=== PATIENT | female | born 1960 ===

== ENCOUNTER 2016-12-10 23:55 | Observation (INO) | payer MEDICAID ==
--- NOTE | 2016-12-11 00:22 | ED PDOC ---
Arrival/HPI - General Historian: Patient - History of Present Illness Time/Duration: Prior to Arrival Symptom Onset: Sudden Symptom Course: Intermittent Quality: Pressure, Burning Severity Level: Moderate Activities at Onset: Rest - General Chief Complaint: Chest Pain Time Seen by Provider: 12/11/16 00:03 - History of Present Illness Narrative History of Present Illness (Text): 12/11/16 00:34 56yo F with PMHx of HTN and tobacco abuse here for evaluation of chest pain. Patient states that at 11PM tonight, she felt some chest pain, described as pressure and burning. She was resting upon onset of pain. She states that she felt some palpitations at the time of the event. Chest pain has been continuing off and on since the initial episode. She states that she checked her BP at the time at home and the systolic BP was 176. She took an Aspirin 81mg and her regular BP med when she had the chest pain. Currently denies any pain. She has been compliant with her home regimen of Metoprolol 25mg BID. Denies N/V/D. No Abd pain. No F/C. No SOB. No headaches. No dysuria. No Lower extremity swelling. No other complaints. She reports similar episode in June. She was admitted and ACS was ruled out with serial troponins. She was recommended to obtain an out-patient stress test , however, the patient has not followed up. PMHx: HTN, Prior TIA, glucose intolerance PShx: Cholecystectomy, Hernia repair, Left Eye Cataract repair Family Hx: mother [place] in her 70s Social Hx: 3-5 cig/ day x 25+ yrs; Denies any alcohol, denies any illicit drugs Meds: ASA 81mg, Metoprolol 25mg PO BID Allergy: Morphine (Anali,Francisco) Past Medical History - Provider Review Nursing Documentation Reviewed: Yes - Infectious Disease Hx of Infectious Diseases: None - Tetanus Immunization Tetanus Immunization: Unknown - Cardiac Hx Cardiac Disorders: Yes Hx Hypertension: Yes - Pulmonary Hx Respiratory Disorders: No - Neurological Hx Neurological Disorder: Yes Hx Dizziness: Yes - HEENT Hx HEENT Disorder: Yes Hx Cataracts: Yes - Renal Hx Renal Disorder: No - Endocrine/Metabolic Hx Diabetes Mellitus Type 2: Yes ("Borderline") - Hematological/Oncological Hx Blood Disorders: No - Integumentary Hx Dermatological Disorder: No - Musculoskeletal/Rheumatological Hx Musculoskeletal Disorders: No Hx Falls: No - Gastrointestinal Hx Gastrointestinal Disorders: No - Genitourinary/Gynecological Hx Genitourinary Disorders: No - Psychiatric Hx Psychophysiologic Disorder: Yes Hx Anxiety: Yes Hx Substance Use: No - Surgical History Hx Cholecystectomy: Yes Other/Comment: cataract sx - Anesthesia Hx Anesthesia: Yes Hx Anesthesia Reactions: No Hx Malignant Hyperthermia: No - Suicidal Assessment Feels Threatened In Home Enviroment: No Family/Social History - Physician Review Nursing Documentation Reviewed: Yes Family/Social History: CAD/NC (Mother) Smoking Status: Light Smoker < 10 Cigarettes Daily Hx Alcohol Use: No Hx Substance Use: No Hx Substance Use Treatment: No Allergies/Home Meds Allergies/Adverse Reactions: Allergies morphine Allergy (Verified 05/19/16 10:22) SHORTNESS OF BREATH Home Medications: Home Meds Medication Instructions Recorded Confirmed Calcium Carbonate/Vitamin D 1 tab PO DAILY 02/06/15 06/20/16 [Calcium 900 W/Vitamin D 300 mg-100 Iu] Gabapentin [Neurontin] 100 mg PO TID 02/06/15 06/20/16 Sertraline HCl [Zoloft] 50 mg PO DAILY 02/06/15 06/20/16 Review of Systems - Physician Review All systems were reviewed & negative as marked: Yes - Review of Systems Constitutional: Normal Eyes: Normal ENT: Normal Respiratory: absent: SOB, Cough Cardiovascular: Chest Pain, Palpitations. absent: Edema, Calf Pain, HENSON, Syncope Gastrointestinal: Normal. absent: Abdominal Pain, Constipation, Diarrhea, Vomiting Genitourinary Female: absent: Dysuria, Frequency Musculoskeletal: absent: Arthralgias, Back Pain Skin: absent: Rash, Pruritis Neurological: absent: Headache, Dizziness Endocrine: absent: Diaphoresis Physical Exam Vital Signs Reviewed: Yes Temperature: Afebrile Blood Pressure: Hypertensive Pulse: Regular Respiratory Rate: Normal Appearance: Positive for: Well-Appearing, Non-Toxic, Comfortable Pain Distress: None Mental Status: Positive for: Alert and Oriented X 3 - Systems Exam Head: Present: Atraumatic, Normocephalic Extroacular Muscles: Present: EOMI Neck: Present: Normal Range of Motion. No: JVD Respiratory/Chest: Present: Clear to Auscultation, Good Air Exchange. No: Respiratory Distress, Wheezes, Decreased Breath Sounds, Rales, Rhonchi Cardiovascular: Present: Normal S1, S2. No: Murmurs Abdomen: No: Tenderness, Distention, Peritoneal Signs, Rebound Upper Extremity: Present: Normal Inspection. No: Edema Lower Extremity: Present: Normal Inspection. No: Edema, CALF TENDERNESS Neurological: Present: GCS=15 Skin: Present: Warm, Dry, Normal Color. No: Rashes, Diaphoretic Psychiatric: Present: Alert, Oriented x 3 Medical Decision Making ED Course and Treatment: 12/11/16 00:52 56yo F with PMHx including HTN, Tobacco abuse here for evaluation of chest pain - EKG - NSR @ 90. Left axis. No ST changes. Similar to previous EKG. - CBC - CMP - CPK - Troponin - ASA 243mg PO - CXR - Reassess and dispo 12/11/16 01:15 - HEART score is 4pts = 12-16% risk of major adverse cardiac event within 30 days - JOAN score 2pts = 8% risk of major adverse cardiac event within 14 days Upon reevaluation, patient is c/o a burning type retro sternal chest pain. - Maalox PO 12/11/16 01:25 - Mild leukocytosis noted. - Troponin negative - CXR - no active disease 12/11/16 01:26 - Discussed case with Dr. Lewis. Agrees with current plan. Accepts patient under the hospitalist service. vice president medical affairs aware and will evaluate patient. Admission to Tele Obs. - Discussed all lab findings and imaging with patient and daughter at bedside. All questions and concerns addressed. Patient understands and agrees with plan. (Francisco Briones) 12/11/16 01:36 Patient seen by resident and then evaluated by me. Patient has multiple cardiac risk factors and no cardiac follow-up within 72 hours. Cxray negative. Trop x 1 negative. Patient to be transferred to tele observation for chest pain (Marina Dent) - Lab Interpretations Lab Results: 12/11/16 00:20 12/11/16 00:20 Lab Results 12/11/16 00:20: Sodium 144, Potassium 4.3, Chloride 107, Carbon Dioxide 26, Anion Gap 15, BUN 11, Creatinine 0.7, Est GFR ( Amer) > 60, Est GFR (Non- Af Amer) > 60, Random Glucose 130 H, Calcium 9.4, Total Bilirubin 0.3, AST 31, ALT 41, Alkaline Phosphatase 115, Total Creatine Kinase 97, Troponin I < 0.01, Total Protein 7.3, Albumin 4.3, Globulin 3.1, Albumin/Globulin Ratio 1.4 12/11/16 00:20: WBC 13.8 H D, RBC 4.80, Hgb 14.5, Hct 42.9, MCV 89.4, MCH 30.2, MCHC 33.8, RDW 13.4, Plt Count 281, MPV 10.5, Gran % 46.1 L, Lymph % (Auto) 37.6 H, [place] % (Auto) 8.0 H, Eos % (Auto) 8.0 H, Baso % (Auto) 0.3, Gran # 6.34 , Lymph # 5.2 H, [place] # 1.1 H, Eos # 1.1 H, Baso # 0.04 - RAD Interpretation Radiology Orders: 12/11/16 00:21 CHEST PORTABLE [RAD] Stat - Medication Orders Current Medication Orders: Discontinued Medications Al Hydrox/Mg Hydrox/Simethicone (Maalox Plus 30 Ml) 30 ml PO STAT STA Stop: 12/11/16 01:18 Aspirin (Aspirin Chewable) 243 mg PO STAT STA Stop: 12/11/16 00:37 Last Admin: 12/11/16 00:53 Dose: 243 mg - PA / MEDICAL DIAGNOSTIC RADIOGRAPHER / Resident Statement / has reviewed & agrees with the documentation as recorded. / has examined the patient and agrees with the treatment plan. Disposition/Present on Arrival - Present on Arrival Any Indicators Present on Arrival: No History of DVT/PE: No History of Uncontrolled Diabetes: No Urinary Catheter: No History of Decub. Ulcer: No History Surgical Site Infection Following: None - Disposition Have Diagnosis and Disposition been Completed?: Yes Disposition Time: 01:30 Patient Plan: Admission, Observation, Telemetry - Disposition Diagnosis: Chest pain Disposition: HOSPITALIZED Condition: STABLE Discharge Instructions (ExitCare): Chest Pain (ED) Forms: [employer] ([place])
[2016-12-11 00:55] LABS: BASO # 0.04 K/mm3 (0.0-2.0); BASO % 0.3 % (0.0-3.0); EOS # 1.1 (0.0-0.7); GRAN # 6.34 (1.4-6.5); GRAN % 46.1 % (50.0-68.0); HEMATOCRIT 42.9 % (36.0-48.0); LYMPH # 5.2 (1.2-3.4); LYMPH % 37.6 % (22.0-35.0); MEAN CELL VOLUME 89.4 fl (80.0-105.0); MEAN CORPUSCULAR HEMOGLOBIN 30.2 pg (25.0-35.0); MEAN CORPUSCULAR HGB CONC 33.8 g/dl (31.0-37.0); MEAN PLATELET VOLUME 10.5 fl (7.0-11.0); MONO # 1.1 (0.1-0.6); RED CELL DISTRIBUTION WIDTH 13.4 % (11.5-14.5); WHITE BLOOD COUNT 13.8 10^3/ul (4.5-11.0)
[2016-12-11 00:59] LABS: ALB/GLOB RATIO 1.4 (1.1-1.8); ALKALINE PHOSPHATASE 115 U/L (38-133); ALT/SGPT 41 U/L (7-56); AST/SGOT 31 U/L (15-39); BILIRUBIN,TOTAL 0.3 mg/dL (0.2-1.3); BLOOD UREA NITROGEN 11 mg/dL (7-21); CALCIUM 9.4 mg/dL (8.4-10.5); CARBON DIOXIDE 26 mmol/L (21-33); GFR AFRICAN-AMERICAN > 60; GLUCOSE,RANDOM 130 mg/dL (70-110); TOTAL PROTEIN 7.3 g/dL (5.8-8.3)
[2016-12-11 01:01] LABS: CHLORIDE 107 mmol/L (98-107); POTASSIUM 4.3 mmol/L (3.6-5.0); SODIUM 144 mmol/L (132-148)
[2016-12-11 01:11] LABS: TROPONIN I < 0.01 ng/mL
[2016-12-11] MEDS ORDERED: Alum-Mag Hydrox-Simethicone Susp (30 mL) PO STA (01:17)
[2016-12-11 03:18] VITALS: BMI 25.2
[2016-12-11] MEDS ORDERED: Pneumococcal 23-Valent Vaccine IM ONE (03:18)
--- NOTE | 2016-12-11 04:13 | CP.PCM.HP ---
<Kelby Adan - Last Filed: 12/11/16 04:09> History of Present Illness - History of Present Illness History of Present Illness: CC: Chest pain HPI: Patient is a 56 year old female with PMH significant for osteoporosis, HTN , tobacco abuse, TIA in 2002 and fatty liver who presents complaining of chest pain. Patient reports starting about 12 hours ago she suddenly developed mid- sternal chest discomfort described as pressure while watching television. Patient described discomfort as chest pressure without radiation or pain in her jaw, neck, or left arm. Patient states she took her BP at the time of the event and states it was 176/103. Patient reports compliance with medication prescribed to her. She denies any shortness of breath, nausea, vomiting, sweating associated with episode. Associated symptoms include dyspnea on exertion with walking 1 to 1.5 blocks or going up a flight of stairs. She reports previous episodes similar to her presenting symptoms in the past with the most recent being last year. Patient was seen by administrative clerk with last episode but did not follow up outpatient for scheduled stress test. Patient denies abdominal pain, acid reflux, change in vision or dizziness. PMH: HTN, osteoporosis, hx of TIA in 2002, fatty liver, cataracts PSH: Cholecystectomy, Carpal tunnel surgery on R hand, Hernia repair FMH: - Father: HTN, DM2 - Mother: HTN, DM2, MA @ 74 SocHx: Unemployed - Tobacco: 0.5 PPD for 39 years - Etoh: Denies - ID: Denies Meds: See MAR All: Morphine - causes palps Present on Admission - Present on Admission Any Indicators Present on Admission: No History of DVT/PE: No History of Uncontrolled Diabetes: No Urinary Catheter: No Decubitus Ulcer Present: No Review of Systems - Review of Systems All systems: reviewed and no additional remarkable complaints except (except for what is mentioned in HPI) - Cardiovascular Cardiovascular: Chest Pain. absent: Orthopnea - Respiratory Respiratory: Dyspnea on Exertion. absent: Cough, Dyspnea Past Patient History - Infectious Disease Hx of Infectious Diseases: None - Tetanus Immunizations Tetanus Immunization: Unknown - Past Social History Smoking Status: Light Smoker < 10 Cigarettes Daily Alcohol: None Drugs: Denies - CARDIAC Hx Cardiac Disorders: Yes Hx Hypertension: Yes - PULMONARY Hx Respiratory Disorders: No - NEUROLOGICAL Hx Neurological Disorder: Yes Hx Dizziness: Yes - HEENT Hx HEENT Problems: Yes Hx Cataracts: Yes (with surgery) - RENAL Hx Chronic Kidney Disease: No - ENDOCRINE/METABOLIC Hx Endocrine Disorders: Yes Hx Diabetes Mellitus Type 2: Yes ("Borderline") - HEMATOLOGICAL/ONCOLOGICAL Hx Blood Disorders: No - INTEGUMENTARY Hx Dermatological Problems: No - MUSCULOSKELETAL/RHEUMATOLOGICAL Hx Musculoskeletal Disorders: No Hx Falls: No - GASTROINTESTINAL Hx Gastrointestinal Disorders: No - GENITOURINARY/GYNECOLOGICAL Hx Genitourinary Disorders: No - PSYCHIATRIC Hx Psychophysiologic Disorder: Yes Hx Anxiety: Yes Hx Substance Use: No - SURGICAL HISTORY Hx Surgeries: Yes Other/Comment: Cataracts w/ surgery - ANESTHESIA Hx Anesthesia: Yes Hx Anesthesia Reactions: No Hx Malignant Hyperthermia: No Meds Allergies/Adverse Reactions: Allergies Allergy/AdvReac Type Severity Reaction Status Date / Time morphine Allergy SHORTNESS Verified 05/19/16 10:22 OF BREATH Physical Exam - Constitutional Appears: Well - Head Exam Head Exam: ATRAUMATIC - Eye Exam Eye Exam: EOMI, PERRL - ENT Exam ENT Exam: Mucous Membranes Moist, Normal Exam - Neck Exam Neck exam: Positive for: Normal Inspection - Respiratory Exam Respiratory Exam: Clear to Auscultation Bilateral, NORMAL BREATHING PATTERN - Cardiovascular Exam Cardiovascular Exam: REGULAR RHYTHM, +S1, +S2 - GI/Abdominal Exam GI & Abdominal Exam: Normal Bowel Sounds, Soft - Rectal Exam Rectal Exam: Deferred - Extremities Exam Extremities exam: Positive for: normal inspection, pedal pulses present. Negative for: calf tenderness, pedal edema - Back Exam Back exam: NORMAL INSPECTION. absent: CVA tenderness (L), CVA tenderness (R) - Neurological Exam Neurological exam: Alert, CN II-XII Intact, Normal Gait, Oriented x3, Reflexes Normal - Psychiatric Exam Psychiatric exam: Normal Affect, Normal Mood - Skin Skin Exam: Dry, Intact, Normal Color, Warm Results - Vital Signs Recent Vital Signs: Last Vital Signs Temp 97.5 F L 12/11/16 02:53 Pulse 68 12/11/16 02:53 Resp 20 12/11/16 02:53 BP 128/67 12/11/16 02:53 Pulse Ox 99 12/11/16 02:32 - Labs Result Diagrams: 12/11/16 00:20 12/11/16 00:20 Assessment & Plan (1) Chest pain Status: Acute - Assessment and Plan (Free Text) Assessment: Patient is a 56 year old female with PMH significant for osteoporosis, HTN, tobacco abuse, TIA in 2002 and fatty liver who presents complaining of chest pain. Patient initial troponin was negative. She will be admitted for observation and ACS r/o. Cardiology has been consulted. Plan: 1. Chest Pain r/o ACS - EKG showing no ST segment elevation/depression, nor T wave inversions - CXR showing cephalization of pulmonary vasculature bilateral - Initial troponin negative x1 - Trend troponin x2 - CBC, CMP, Mg, Ph, TSH, HgA1c - O2 prn, ASA 81 mg, - Nitrates SL prn - Cardiology consult, appreciate recs 2. Hx of HTN - Continue home medicatiosn 3. Hx of Osteoporosis - Continue home meds GI/DVT ppx - pepcid - SCDs - Date & Time Date: 12/11/16 Time: 03:20 <Ryan Lewis - Last Filed: 12/11/16 05:16> Results - Vital Signs Recent Vital Signs: Last Vital Signs Temp 97.5 F L 12/11/16 02:53 Pulse 68 12/11/16 02:53 Resp 20 12/11/16 02:53 BP 128/67 12/11/16 02:53 Pulse Ox 99 12/11/16 02:32 - Labs Result Diagrams: 12/11/16 00:20 12/11/16 00:20 Attending/Attestation - Attestation I have personally seen and examined this patient.: Yes I have fully participated in the care of the patient.: Yes I have reviewed all pertinent clinical information: Yes Notes (Text): 12/11/16 05:15 Patient was seen when she was in bed # 3 in the ER. Agree with history, physical examination, assessment and plan. Medical record was reviewed. Following are my impressions. Chest pressure. Palpitation. ACS. Hypertension. H.Pylori. PUD. Glucose Intolerance. Ex smoker. Allergy to morphine. Cholecystectomy. Herniorrhaphy. Cataract surgery Left Eye. Family history CAD. Family hisory MA. TIA's. Osteoporosis. HLD.
[2016-12-11 06:19] LABS: BASO # 0.04 K/mm3 (0.0-2.0); BASO % 0.3 % (0.0-3.0); EOS # 0.8 (0.0-0.7); EOS % 6.7 % (1.5-5.0); GRAN % 52.4 % (50.0-68.0); HEMATOCRIT 40.4 % (36.0-48.0); LYMPH # 3.8 (1.2-3.4); MEAN CELL VOLUME 88.8 fl (80.0-105.0); MEAN CORPUSCULAR HEMOGLOBIN 29.7 pg (25.0-35.0); MEAN CORPUSCULAR HGB CONC 33.4 g/dl (31.0-37.0); MEAN PLATELET VOLUME 10.3 fl (7.0-11.0); MONO # 0.9 (0.1-0.6); MONO % 7.6 % (1.0-6.0); RED CELL DISTRIBUTION WIDTH 13.3 % (11.5-14.5); WHITE BLOOD COUNT 11.5 10^3/ul (4.5-11.0)
[2016-12-11 06:25] VITALS: O2SAT 97
[2016-12-11 06:35] LABS: ALB/GLOB RATIO 1.4 (1.1-1.8); ALKALINE PHOSPHATASE 102 U/L (38-133); ALT/SGPT 39 U/L (7-56); AST/SGOT 27 U/L (15-39); BILIRUBIN,TOTAL 0.3 mg/dL (0.2-1.3); BLOOD UREA NITROGEN 9 mg/dL (7-21); CARBON DIOXIDE 29 mmol/L (21-33); CHLORIDE 107 mmol/L (98-107); CHOLESTEROL 171 mg/dL (130-200); GFR AFRICAN-AMERICAN > 60; GLUCOSE,RANDOM 109 mg/dL (70-110); POTASSIUM 4.3 mmol/L (3.6-5.0); SODIUM 144 mmol/L (132-148); TOTAL PROTEIN 6.7 g/dL (5.8-8.3)
[2016-12-11 06:53] LABS: TROPONIN I < 0.01 ng/mL
[2016-12-11 07:20] LABS: MAGNESIUM 2.3 mg/dL (1.7-2.2); PHOSPHOROUS 3.9 mg/dL (2.5-4.5)
--- NOTE | 2016-12-11 07:57 | RAD ---
HISTORY: chest pain COMPARISON: 06/19/2016 FINDINGS: LUNGS: No active pulmonary disease. PLEURA: No significant pleural effusion identified, no pneumothorax apparent. CARDIOVASCULAR: Normal. OSSEOUS STRUCTURES: No significant abnormalities. VISUALIZED UPPER ABDOMEN: Normal. OTHER FINDINGS: None. IMPRESSION: No active disease.
[2016-12-11 09:26] LABS: URINE BILIRUBIN NEGATIVE (NEGATIVE); URINE BLOOD NEGATIVE (NEGATIVE); URINE GLUCOSE (UA) NEGATIVE (NEGATIVE); URINE KETONE NEGATIVE (NEGATIVE); URINE LEUKOCYTE ESTERASE NEGATIVE Leu/uL (NEGATIVE); URINE PROTEIN TRACE mg/dL (<30 mg/dL)
[2016-12-11 09:27] LABS: URINE APPEARANCE CLEAR (CLEAR); URINE COLOR YELLOW (YELLOW)
[2016-12-11 09:32] LABS: URINE BACTERIA FEW (NEG); URINE RBC NEGATIVE /hpf (0-2); URINE WBC 0 - 2 /hpf (0-6)
[2016-12-11] MEDS ORDERED: CALCIUM CARBONATE PO SCH (10:00)
[2016-12-11] MEDS ORDERED: VITAMIN D PO SCH (10:00)
--- NOTE | 2016-12-11 15:23 | CARD ---
APPROVED REPORT EKG Measurement Heart [id number] ID [id number] <Conclusion> Normal sinus rhythm Left axis deviation Inferior infarct, age undetermined Abnormal ECG
--- NOTE | 2016-12-11 15:27 | CARD ---
APPROVED REPORT EKG Measurement Heart [id number] <Conclusion> Normal sinus rhythm Left axis deviation Abnormal ECG
--- NOTE | 2016-12-11 15:29 | CARD ---
APPROVED REPORT EKG Measurement Heart [id number] <Conclusion> Normal sinus rhythm Left axis deviation Abnormal ECG
--- NOTE | 2016-12-11 15:58 | CP.PCM.DIS ---
<SUKHI SIM - Last Filed: 12/11/16 20:07> Provider - Provider Date of Admission: 12/11/16 01:20 Attending physician: Jackie Sotomayor MD Consults: Cardio: Cristobal Time Spent in preparation of Discharge (in minutes): 45 Hospital Course - Lab Results Lab Results: Most Recent Lab Values WBC 11.5 10^3/ul (4.5-11.0) H 12/11/16 05:30 RBC 4.55 10^6/uL (3.5-6.1) 12/11/16 05:30 Hgb 13.5 g/dL (12.0-16.0) 12/11/16 05:30 Hct 40.4 % (36.0-48.0) 12/11/16 05:30 MCV 88.8 fl (80.0-105.0) 12/11/16 05:30 MCH 29.7 pg (25.0-35.0) 12/11/16 05:30 MCHC 33.4 g/dl (31.0-37.0) 12/11/16 05:30 RDW 13.3 % (11.5-14.5) 12/11/16 05:30 Plt Count 266 10^3/uL (120.0-450.0) 12/11/16 05:30 MPV 10.3 fl (7.0-11.0) 12/11/16 05:30 Gran % 52.4 % (50.0-68.0) 12/11/16 05:30 Lymph % (Auto) 33.0 % (22.0-35.0) 12/11/16 05:30 [place] % (Auto) 7.6 % (1.0-6.0) H 12/11/16 05:30 Eos % (Auto) 6.7 % (1.5-5.0) H 12/11/16 05:30 Baso % (Auto) 0.3 % (0.0-3.0) 12/11/16 05:30 Gran # 6.00 (1.4-6.5) 12/11/16 05:30 Lymph # 3.8 (1.2-3.4) H 12/11/16 05:30 [place] # 0.9 (0.1-0.6) H 12/11/16 05:30 Eos # 0.8 (0.0-0.7) H 12/11/16 05:30 Baso # 0.04 K/mm3 (0.0-2.0) 12/11/16 05:30 Sodium 144 mmol/L (132-148) 12/11/16 05:30 Potassium 4.3 mmol/L (3.6-5.0) 12/11/16 05:30 Chloride 107 mmol/L (98-107) 12/11/16 05:30 Carbon Dioxide 29 mmol/L (21-33) 12/11/16 05:30 Anion Gap 12 (10-20) 12/11/16 05:30 BUN 9 mg/dL (7-21) 12/11/16 05:30 Creatinine 0.6 mg/dL (0.5-1.4) 12/11/16 05:30 Est GFR ( Amer) > 60 12/11/16 05:30 Est GFR (Non-Af Amer) > 60 12/11/16 05:30 Random Glucose 109 mg/dL (70-110) 12/11/16 05:30 Hemoglobin A1c 6.2 % (4.2-6.5) 12/11/16 05:30 Calcium 9.0 mg/dL (8.4-10.5) 12/11/16 05:30 Phosphorus 3.9 mg/dL (2.5-4.5) 12/11/16 05:30 Magnesium 2.3 mg/dL (1.7-2.2) H 12/11/16 05:30 Total Bilirubin 0.3 mg/dL (0.2-1.3) 12/11/16 05:30 AST 27 U/L (15-39) 12/11/16 05:30 ALT 39 U/L (7-56) 12/11/16 05:30 Alkaline Phosphatase 102 U/L (38-133) 12/11/16 05:30 Total Creatine Kinase 97 U/L (35-230) 12/11/16 00:20 Troponin I < 0.01 ng/mL 12/11/16 12:00 Total Protein 6.7 g/dL (5.8-8.3) 12/11/16 05:30 Albumin 3.9 g/dL (3.0-4.8) 12/11/16 05:30 Globulin 2.8 gm/dL 12/11/16 05:30 Albumin/Globulin Ratio 1.4 (1.1-1.8) 12/11/16 05:30 Triglycerides 123 mg/dL (35-160) 12/11/16 05:30 Cholesterol 171 mg/dL (130-200) 12/11/16 05:30 LDL Cholesterol Direct 114 mg/dL (0-129) 12/11/16 05:30 HDL Cholesterol 43 mg/dL (29-60) 12/11/16 05:30 TSH 3rd Generation 1.17 mIU/mL (0.46-4.68) 12/11/16 05:30 Urine Color Yellow (YELLOW) 12/11/16 08:45 Urine Appearance Clear (CLEAR) 12/11/16 08:45 Urine pH 7.0 (4.7-8.0) 12/11/16 08:45 Ur Specific [place] 1.015 (1.005-1.035) 12/11/16 08:45 Urine Protein Trace mg/dL (<30 mg/dL) H 12/11/16 08:45 Urine Glucose (UA) Negative mg/dL (NEGATIVE) 12/11/16 08:45 Urine Ketones Negative mg/dL (NEGATIVE) 12/11/16 08:45 Urine Blood Negative (NEGATIVE) 12/11/16 08:45 Urine Nitrate Negative (NEGATIVE) 12/11/16 08:45 Urine Bilirubin Negative (NEGATIVE) 12/11/16 08:45 Urine Urobilinogen 1.0 E.U./dL (<1 E.U./dL) H 12/11/16 08:45 Ur Leukocyte Esterase Negative Ivette/uL (NEGATIVE) 12/11/16 08:45 Urine RBC Negative /hpf (0-2) 12/11/16 08:45 Urine WBC 0 - 2 /hpf (0-6) 12/11/16 08:45 Ur Epithelial Cells 4 - 5 /hpf (0-5) 12/11/16 08:45 Urine Bacteria Few (NEG) 12/11/16 08:45 - Hospital Course Hospital Course: Patient is a 56 year old female with PMH significant for osteoporosis, HTN, tobacco abuse, TIA in 2002 and fatty liver who presented complaining of chest pain. Patient reported pain started about 12 hours ago she suddenly developed mid-sternal chest discomfort described as pressure while watching television. Patient described discomfort as chest pressure without radiation or pain in her jaw, neck, or left arm. Patient states she took her BP at the time of the event and states it was 176/103. Patient reported compliance with medication prescribed to her. She denies any shortness of breath, nausea, vomiting, sweating associated with episode. Associated symptoms include dyspnea on exertion with walking 1 to 1.5 blocks or going up a flight of stairs. She reports previous episodes similar to her presenting symptoms in the past with the most recent being last year. 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 Patient denied abdominal pain, acid reflux, change in vision or dizziness. In the ED, labs and imaging were obtained. Labs were unremarkable. Troponin x1 was negative. EKG showed no ST segment elevation/depression, nor T wave inversions. CXR showed cephalization of pulmonary vasculature bilateral. Pt was admitted for chest pain r/o acs. Cardio was consulted and recommendations were appreciated. TSH, A1C, and Lipids were WNL. Echo on 07/03 showed EF 60.9%. Troponin was trended and was negative x2. Today, pt was seen and examined at bedside. Pt states that CP and SOB has subsided. Pt denies n/v/d, abdominal pain , fever, chills, HORN, and dizziness. Pt discharged and advised to follow up with PMD and cardiology out-patient. Pt advised to take her medication as prescribed. Discharge Exam - Head Exam Head Exam: ATRAUMATIC - Eye Exam Eye Exam: EOMI, PERRL - ENT Exam ENT Exam: Mucous Membranes Moist - Neck Exam Neck exam: Full Rom - Respiratory Exam Respiratory Exam: Clear to PA & Lateral. absent: Rales, Rhonchi, Wheezes - Cardiovascular Exam Cardiovascular Exam: RRR, +S1, +S2. absent: Diastolic murmur, Gallop, Rubs, Systolic Murmur - GI/Abdominal Exam GI & Abdominal Exam: Soft. absent: Distended, Guarding, Organomegaly, Rebound, Tenderness - Extremities Exam Extremities exam: normal inspection - Back Exam Back exam: NORMAL INSPECTION - Neurological Exam Neurological exam: Alert, CN II-XII Intact, Normal Gait, Oriented x3 - Psychiatric Exam Psychiatric exam: Normal Affect, Normal Mood - Skin Skin Exam: Dry, Intact, Normal Color, Warm Discharge Plan - Follow Up Plan Condition: STABLE Disposition: HOME/ ROUTINE Instructions: Chest Pain (DC), Chest Pain (GEN), How to Stop Smoking (DC), Cigarette Smoking and Your Health (GEN), Low Sodium Diet (DC) Additional Instructions: 1. Follow up with PMD within 1 week 2. Follow up with cardiology within 1 week 3. Take medications as prescribed 4. Return to ED if condition or symptoms worsen Referrals: Shaggy Jain MD [Staff Provider] - <Jackie Sotomayor - Last Filed: 12/12/16 07:17> Provider - Provider Date of Admission: 12/11/16 01:20 Attending physician: Jackie Sotomayor MD Hospital Course - Lab Results Lab Results: Most Recent Lab Values WBC 11.5 10^3/ul (4.5-11.0) H 12/11/16 05:30 RBC 4.55 10^6/uL (3.5-6.1) 12/11/16 05:30 Hgb 13.5 g/dL (12.0-16.0) 12/11/16 05:30 Hct 40.4 % (36.0-48.0) 12/11/16 05:30 MCV 88.8 fl (80.0-105.0) 12/11/16 05:30 MCH 29.7 pg (25.0-35.0) 12/11/16 05:30 MCHC 33.4 g/dl (31.0-37.0) 12/11/16 05:30 RDW 13.3 % (11.5-14.5) 12/11/16 05:30 Plt Count 266 10^3/uL (120.0-450.0) 12/11/16 05:30 MPV 10.3 fl (7.0-11.0) 12/11/16 05:30 Gran % 52.4 % (50.0-68.0) 12/11/16 05:30 Lymph % (Auto) 33.0 % (22.0-35.0) 12/11/16 05:30 [place] % (Auto) 7.6 % (1.0-6.0) H 12/11/16 05:30 Eos % (Auto) 6.7 % (1.5-5.0) H 12/11/16 05:30 Baso % (Auto) 0.3 % (0.0-3.0) 12/11/16 05:30 Gran # 6.00 (1.4-6.5) 12/11/16 05:30 Lymph # 3.8 (1.2-3.4) H 12/11/16 05:30 [place] # 0.9 (0.1-0.6) H 12/11/16 05:30 Eos # 0.8 (0.0-0.7) H 12/11/16 05:30 Baso # 0.04 K/mm3 (0.0-2.0) 12/11/16 05:30 Sodium 144 mmol/L (132-148) 12/11/16 05:30 Potassium 4.3 mmol/L (3.6-5.0) 12/11/16 05:30 Chloride 107 mmol/L (98-107) 12/11/16 05:30 Carbon Dioxide 29 mmol/L (21-33) 12/11/16 05:30 Anion Gap 12 (10-20) 12/11/16 05:30 BUN 9 mg/dL (7-21) 12/11/16 05:30 Creatinine 0.6 mg/dL (0.5-1.4) 12/11/16 05:30 Est GFR ( Amer) > 60 12/11/16 05:30 Est GFR (Non-Af Amer) > 60 12/11/16 05:30 Random Glucose 109 mg/dL (70-110) 12/11/16 05:30 Hemoglobin A1c 6.2 % (4.2-6.5) 12/11/16 05:30 Calcium 9.0 mg/dL (8.4-10.5) 12/11/16 05:30 Phosphorus 3.9 mg/dL (2.5-4.5) 12/11/16 05:30 Magnesium 2.3 mg/dL (1.7-2.2) H 12/11/16 05:30 Total Bilirubin 0.3 mg/dL (0.2-1.3) 12/11/16 05:30 AST 27 U/L (15-39) 12/11/16 05:30 ALT 39 U/L (7-56) 12/11/16 05:30 Alkaline Phosphatase 102 U/L (38-133) 12/11/16 05:30 Total Creatine Kinase 97 U/L (35-230) 12/11/16 00:20 Troponin I < 0.01 ng/mL 12/11/16 12:00 Total Protein 6.7 g/dL (5.8-8.3) 12/11/16 05:30 Albumin 3.9 g/dL (3.0-4.8) 12/11/16 05:30 Globulin 2.8 gm/dL 12/11/16 05:30 Albumin/Globulin Ratio 1.4 (1.1-1.8) 12/11/16 05:30 Triglycerides 123 mg/dL (35-160) 12/11/16 05:30 Cholesterol 171 mg/dL (130-200) 12/11/16 05:30 LDL Cholesterol Direct 114 mg/dL (0-129) 12/11/16 05:30 HDL Cholesterol 43 mg/dL (29-60) 12/11/16 05:30 TSH 3rd Generation 1.17 mIU/mL (0.46-4.68) 12/11/16 05:30 Urine Color Yellow (YELLOW) 12/11/16 08:45 Urine Appearance Clear (CLEAR) 12/11/16 08:45 Urine pH 7.0 (4.7-8.0) 12/11/16 08:45 Ur Specific [place] 1.015 (1.005-1.035) 12/11/16 08:45 Urine Protein Trace mg/dL (<30 mg/dL) H 12/11/16 08:45 Urine Glucose (UA) Negative mg/dL (NEGATIVE) 12/11/16 08:45 Urine Ketones Negative mg/dL (NEGATIVE) 12/11/16 08:45 Urine Blood Negative (NEGATIVE) 12/11/16 08:45 Urine Nitrate Negative (NEGATIVE) 12/11/16 08:45 Urine Bilirubin Negative (NEGATIVE) 12/11/16 08:45 Urine Urobilinogen 1.0 E.U./dL (<1 E.U./dL) H 12/11/16 08:45 Ur Leukocyte Esterase Negative [place]/uL (NEGATIVE) 12/11/16 08:45 Urine RBC Negative /hpf (0-2) 12/11/16 08:45 Urine WBC 0 - 2 /hpf (0-6) 12/11/16 08:45 Ur Epithelial Cells 4 - 5 /hpf (0-5) 12/11/16 08:45 Urine Bacteria Few (NEG) 12/11/16 08:45 Attending/Attestation - Attestation I have personally seen and examined this patient.: Yes I have fully participated in the care of the patient.: Yes I have reviewed all pertinent clinical information, including history, physical exam and plan: Yes Notes (Text): 12/11/16 56 year old female with past medical history of hypertension and smoker who presented with complaint of chest pain. Serial cardiac enzymes were negative and ACS was ruled out. Her chest pain has resolved. She was seen by cardiology who recommended outpatient stress test. This was recommended on her recent last admission as well but she failed to comply. Counselled on smoking abstinence. Patient is discharged home today. Follow up with pmd and cardiology for outpatient stress test. Jackie Sotomayor MD Hospitalist.
[2016-12-11 18:39] VITALS: BP 111/59; PULSE 76; RESP 18; TEMP 98
--- NOTE | 2016-12-11 20:05 | CP.PCM.PN ---
Subjective - Date & Time of Evaluation Date of Evaluation: 12/11/16 Time of Evaluation: 20:04 - Subjective Subjective: Patient has been cleared to be discharge by , as per nurse Michelle. Discussed with . Will enter discharge order and have medical delivery technician see patient. Objective - Vital Signs/Intake and Output Vital Signs (last 24 hours): Temp Pulse Resp BP Pulse Ox 98 F 76 18 111/59 L 97 12/11/16 18:00 12/11/16 18:00 12/11/16 18:00 12/11/16 18:00 12/11/16 06:00 Intake and Output: 12/11/16 12/12/16 18:59 06:59 Intake Total 600 Balance 600 - Medications Medications: Current Medications Aspirin (Aspirin Chewable) 81 mg PO DAILY [facility] Last Admin: 12/11/16 10:15 Dose: 81 mg Famotidine (Pepcid) 20 mg PO BID [facility] Last Admin: 12/11/16 17:54 Dose: 20 mg Metoprolol Tartrate (Lopressor) 25 mg PO BID [facility] Last Admin: 12/11/16 17:56 Dose: 25 mg Calcium Carbonate/Vitamin D [Calcium 900 W/Vitamin D 300 Mg-100 (Home Med) 1 tab PO DAILY [facility] Last Admin: 12/11/16 10:19 Dose: Not Given - Labs Labs: 12/11/16 05:30 12/11/16 05:30
--- NOTE | 2016-12-11 21:10 | PN ---
DATE: SUBJECTIVE: The patient denies any chest pain or palpitation. She is experiencing left hip pain. PHYSICAL EXAMINATION: VITAL SIGNS: Blood pressure 111/76, heart rate 76, temperature 98.3, respiration 20. HEENT: Normocephalic. CHEST: Clear. HEART: S1 and S2, regular. EXTREMITIES: No edema. LABORATORY DATA: Today's SMA-7 is entirely within normal limit. Three sets of troponins are negative. Magnesium is 2.3. Hemoglobin and hematocrit 13.5 and 40.4, white count 11.5, platelet count 266,000. TSH level was within normal limit. Lipid profile is within normal limit. ASSESSMENT: 1. History of palpitation on presentation. 2. Hypertension. RECOMMENDATIONS: Continue current aspirin, Lopressor, and oral Pepcid. Consider outpatient stress test. Shaggy Jain MD
--- NOTE | 2016-12-14 09:17 | CON ---
DATE: 12/11/2016 REASON FOR CONSULTATION: Chest pain. HISTORY OF PRESENT ILLNESS: The patient is a 56-year-old female, former smoker, who presented because of chest pain and the patient was recently evaluated at [facility]. Recent venous Doppler of lower extremity was negative for DVT and echocardiograph study in June 2016 was unremarkable study. Patient is unaware of any history of heart attack in the past. SOCIAL HISTORY: Patient is a former smoker. MEDICATIONS: Aspirin 81 mg once daily, Lopressor 25 mg twice a day, Pepcid 20 mg p.o. twice a day. PHYSICAL EXAMINATION GENERAL: Patient is a middle-aged female who does not appear to be in any distress. VITAL SIGNS: Blood pressure 111/76, heart rate 98, temperature 98.3, respirations 20. HEENT: Normocephalic. NECK: No JVD. CHEST: Clear. HEART: S1 and S2 regular. EXTREMITIES: No edema. No calf tenderness. LABORATORY DATA: SMA-7 is entirely within normal limits. Three sets of troponin are negative. Hemoglobin and hematocrit of 13.5 and 40.4, white count is 11.5, platelet count 166,000. EKG revealed normal sinus rhythm. Left axis deviation, inferior infarct of undetermined age. ASSESSMENT: 1. Chest pain, myocardial infarction ruled out. 2. Hypertension. RECOMMENDATIONS: Continue aspirin 81 mg once a day, Lopressor 25 mg twice a day. Consider Myoview stress test as an outpatient. Shaggy Jain MD
== END 2016-12-11 21:18 | disposition home or self-care (01) ==
LOC: ED 23:55 → ERH 12-11 01:20 → 2RSO 12-11 02:52
PROVIDERS: ADMIT Internal Medicine; ATTEND Internal Medicine
DX: R07.89 Other chest pain (principal); I10 Essential (primary) hypertension; M81.0 Age-related osteoporosis without current pathological fracture; M25.552 Pain in left hip; R00.2 Palpitations; R73.03 Prediabetes; K76.0 Fatty (change of) liver, not elsewhere classified; Z86.73 Personal history of transient ischemic attack (TIA), and cerebral infarction without residual deficits; Z79.82 Long term (current) use of aspirin; Z90.49 Acquired absence of other specified parts of digestive tract; Z87.891 Personal history of nicotine dependence; Z83.3 Family history of diabetes mellitus; Z82.49 Family history of ischemic heart disease and other diseases of the circulatory system
CPT/HCPCS: 71010; 80053; 80061; 81001; 82550; 83036; 83735; 84100; 84443; 84484; 85025; 93005; 99285; G0378

== ENCOUNTER 2017-05-13 14:19 | Emergency (ER) | payer MEDICAID ==
[2017-05-13 14:19] VITALS: BMI 25.2
[2017-05-13 14:55] VITALS: RESP 18
--- NOTE | 2017-05-13 15:00 | ED PDOC ---
Arrival/HPI - General Chief Complaint: High Blood Pressure Time Seen by Provider: 05/13/17 14:54 Historian: Patient - History of Present Illness Narrative History of Present Illness (Text): 05/13/17 14:55 57 y/o female, pmh including htn, allergic to morphine, post menopausal, c/o headache x 2 days with elevated blood pressure yesterday. Pt. stated that she has been having for the past 2 days, rt. sided unilateral, throbbing and bother by bright light, had history of migraine, check her BP yesterday while having headache with systolic BP 160-170, non-radiating, no change in vision, no palpitation, no rash, no tearing sensation, no rash, no cloudy urine, no other medical or psychological complaints. Past Medical History - Provider Review Nursing Documentation Reviewed: Yes - Infectious Disease Hx of Infectious Diseases: None - Tetanus Immunization Tetanus Immunization: Unknown - Cardiac Hx Cardiac Disorders: Yes Hx Hypertension: Yes - Pulmonary Hx Respiratory Disorders: No - Neurological Hx Neurological Disorder: Yes Hx Dizziness: Yes - HEENT Hx HEENT Disorder: Yes Hx Cataracts: Yes (with surgery) - Renal Hx Renal Disorder: No - Endocrine/Metabolic Hx Endocrine Disorders: Yes Hx Diabetes Mellitus Type 2: Yes ("Borderline") - Hematological/Oncological Hx Blood Disorders: No - Integumentary Hx Dermatological Disorder: No - Musculoskeletal/Rheumatological Hx Musculoskeletal Disorders: No Hx Falls: No - Gastrointestinal Hx Gastrointestinal Disorders: No - Genitourinary/Gynecological Hx Genitourinary Disorders: No - Psychiatric Hx Psychophysiologic Disorder: Yes Hx Anxiety: Yes Hx Substance Use: No - Surgical History Other/Comment: Cataracts w/ surgery - Anesthesia Hx Anesthesia: Yes Hx Anesthesia Reactions: No Hx Malignant Hyperthermia: No - Suicidal Assessment Feels Threatened In Home Enviroment: No Family/Social History - Physician Review Nursing Documentation Reviewed: Yes Family/Social History: Unknown Family HX Smoking Status: Light Smoker < 10 Cigarettes Daily Hx Alcohol Use: No Hx Substance Use: No Hx Substance Use Treatment: No Allergies/Home Meds Allergies/Adverse Reactions: Allergies morphine Allergy (Verified 05/13/17 14:21) SHORTNESS OF BREATH Home Medications: Home Meds Medication Instructions Recorded Confirmed Calcium Carbonate/Vitamin D 1 tab PO DAILY 02/06/15 05/13/17 [Calcium 900 W/Vitamin D 300 mg-100 Iu] Gabapentin [Neurontin] 100 mg PO TID 02/06/15 05/13/17 Review of Systems - Review of Systems Constitutional: absent: Fatigue, Fevers Eyes: absent: Vision Changes ENT: absent: Hearing Changes Respiratory: absent: SOB, Cough Cardiovascular: absent: Chest Pain Gastrointestinal: absent: Abdominal Pain, Diarrhea, Nausea, Vomiting Musculoskeletal: absent: Arthralgias, Back Pain Skin: absent: Rash, Pruritis Neurological: Headache Psychiatric: absent: Anxiety, Depression Physical Exam Vital Signs Reviewed: Yes Vital Signs Temp Pulse Resp BP Pulse Ox 05/13/17 14:55 73 18 141/86 96 05/13/17 14:25 98.7 F 76 16 151/82 H 97 Temperature: Afebrile Blood Pressure: Hypertensive Pulse: Regular Respiratory Rate: Normal Appearance: Positive for: Well-Appearing, Non-Toxic Pain Distress: Moderate Mental Status: Positive for: Alert and Oriented X 3 - Systems Exam Head: Present: Atraumatic, Normocephalic, Other (no temporal artery tenderness, no jaw claudication. ) Pupils: Present: PERRL Extroacular Muscles: Present: EOMI Conjunctiva: Present: Normal Ears: Present: NORMAL TM, Normal Canal. No: Erythema Mouth: Present: Moist Mucous Membranes Neck: Present: Normal Range of Motion. No: Meningeal Signs, MIDLINE TENDERNESS , Lymphadenopathy Respiratory/Chest: Present: Clear to Auscultation, Good Air Exchange. No: Respiratory Distress, Accessory Muscle Use Cardiovascular: Present: Regular Rate and Rhythm, Normal S1, S2, Other (no pedal edema). No: Murmurs Abdomen: Present: Normal Bowel Sounds. No: Tenderness, Distention, Peritoneal Signs, Rebound, Guarding Back: Present: Normal Inspection Upper Extremity: Present: Normal Inspection. No: Cyanosis, Edema Lower Extremity: Present: Normal Inspection. No: Edema Neurological: Present: GCS=15, CN II-XII Intact, Speech Normal, Motor Func Grossly Intact, Gait Normal, Memory Normal, Other (no drift, walking with normal gait and posture, normal finger to nose and normal heel to chaney test. ) Skin: Present: Warm, Dry, Normal Color. No: Rashes Psychiatric: Present: Alert, Oriented x 3, Normal Insight, Normal Concentration Medical Decision Making ED Course and Treatment: 05/13/17 15:04 -labs/ua -CT head -IVF/reglan/benadryl -Observe and reassess 05/13/17 18:15 -Labs are non-significant with no elevation of creatine and no elevation of wbc , no signs of end organ damage, no signs of infection. -UA show no UTI -Vital signs improved. -CT head show No acute intracranial hemorrhage. Suspect minimal chronic periventricular white matter ischemic changes. -Pt feels relief, no focal neurological deficits, will discharge home. -Discharge home with tylenol, bed rest, follow up with your own pmd and neurologist within 2 days, return to the ER for any new or worsening signs or symptoms. - Lab Interpretations Lab Results: 05/13/17 15:30 05/13/17 15:30 Lab Results 05/13/17 16:00: Urine Color Yellow, Urine Appearance Clear, Urine pH 6.0, Ur Specific [place] 1.020, Urine Protein Negative, Urine Glucose (UA) Negative, Urine Ketones Negative, Urine Blood Negative, Urine Nitrate Negative, Urine Bilirubin Negative, Urine Urobilinogen 0.2, Ur Leukocyte Esterase Negative 05/13/17 15:30: WBC 9.6, RBC 4.80, Hgb 14.2, Hct 43.5, MCV 90.6, MCH 29.6, MCHC 32.6, RDW 13.3, Plt Count 262, MPV 10.8, Gran % 48.6 L, Lymph % (Auto) 34.9, [place] % (Auto) 9.7 H, Eos % (Auto) 6.4 H, Baso % (Auto) 0.4, Gran # 4.67, Lymph # 3.4, [place] # 0.9 H, Eos # 0.6, Baso # 0.04 05/13/17 15:30: Sodium 142, Potassium 3.9, Chloride 106, Carbon Dioxide 28, Anion Gap 12, BUN 9, Creatinine 0.6 L, Est GFR ( Amer) > 60, Est GFR (Non -Af Amer) > 60, Random Glucose 86, Calcium 9.7, Magnesium 2.0, Total Bilirubin 0.4, AST 30, ALT 32, Alkaline Phosphatase 97, Total Protein 7.5, Albumin 4.1, Globulin 3.4, Albumin/Globulin Ratio 1.2 - RAD Interpretation Radiology Orders: 05/13/17 15:01 HEAD W/O CONTRAST [CT] Stat PROCEDURE: CT HEAD WITHOUT CONTRAST. HISTORY: Headache. Elevated BP, r/o bleed COMPARISON: Comparison made with CT scan brain 06/12/2016 TECHNIQUE: Axial computed tomography images were obtained through the head/brain without intravenous contrast. Radiation dose: Total exam DLP = 891.45 mGy-cm. This CT exam was performed using one or more of the following dose reduction techniques: Automated exposure control, adjustment of the mA and/or kV according to patient size, and/or use of iterative reconstruction technique. FINDINGS: HEMORRHAGE: No intracranial hemorrhage. BRAIN: Suspect minimal chronic periventricular white matter ischemic changes. No evidence of large acute infarct. No obvious parenchymal nor extra-axial masses or collections seen on this noncontrast study. Re- demonstrated are tiny radiopaque densities in the dentate nuclei possibly representing early dentate nuclei calcifications. VENTRICLES: Ventricular and sulcal size within range of normal for this patient's stated age. No obstructive hydrocephalus. . CALVARIUM: Calvarium appears intact. PARANASAL SINUSES: Frontal sinuses remain hypoplastic unchanged from prior exam. Minor polypoid like mucosal thickening seen in the right chamber sphenoid sinus. MASTOID AIR CELLS: Unremarkable as visualized. No inflammatory changes. OTHER FINDINGS: Re- demonstrated are changes of bilateral cataract surgery. IMPRESSION: No acute intracranial hemorrhage. Suspect minimal chronic periventricular white matter ischemic changes. Red Lead Burner: Radiologist - Medication Orders Current Medication Orders: Discontinued Medications Diphenhydramine HCl (Benadryl) 50 mg IVP STAT STA Stop: 05/13/17 15:02 Last Admin: 05/13/17 15:35 Dose: 50 mg IVP Administration Document 05/13/17 15:35 [email or web address] (Rec: 05/13/17 15:35 [facility]- [id number]) Charges for Administration # of IVP Administrations 1 Sodium Chloride (Sodium Chloride 0.9%) 500 mls @ 999 mls/hr IV .Q31M STA Stop: 05/13/17 15:31 Last Admin: 05/13/17 15:35 Dose: 999 mls/hr eMAR Start Stop Document 05/13/17 15:35 [email or web address] (Rec: 05/13/17 15:35 [facility]- [id number]) Intravenous Solution Start Date 05/13/17 Start Time 15:35 End Date 05/13/17 Metoclopramide HCl (Reglan) 10 mg IVP STAT STA Stop: 05/13/17 15:02 Last Admin: 05/13/17 15:34 Dose: 10 mg IVP Administration Document 05/13/17 15:34 [email or web address] (Rec: 05/13/17 15:35 [email or web address] [facility]- [id number]) Charges for Administration # of IVP Administrations 1 - PA / STORAGE ENGINEER / Resident Statement MD/DO has reviewed & agrees with the documentation as recorded. Disposition/Present on Arrival - Present on Arrival Any Indicators Present on Arrival: No History of DVT/PE: No History of Uncontrolled Diabetes: No Urinary Catheter: No History of Decub. Ulcer: No History Surgical Site Infection Following: None - Disposition Have Diagnosis and Disposition been Completed?: Yes Diagnosis: Headache Disposition: HOME/ ROUTINE Disposition Time: 15:05 Patient Plan: Discharge Patient Problems: Current Active Problems Problem Status Onset Headache Acute Condition: IMPROVED Additional Instructions: Discharge home with tylenol, bed rest, follow up with your own pmd and neurologist within 2 days, return to the ER for any new or worsening signs or symptoms. Prescriptions: Acetaminophen 2 tab PO QID PRN #30 tab PRN Reason: Other Referrals: Vaishnavi Schultz MD [Primary Care Provider] - Follow up with primary Getachew Nathan MD [Staff Provider] - Follow up with primary Forms: [employer] ([place]ajik), WORK NOTE
[2017-05-13] MEDS ORDERED: DiphenhydrAMINE 50 mg/ml Inj IVP STA (15:01)
[2017-05-13] MEDS ORDERED: Sodium Chloride 0.9% 500 ML IV STA (15:01)
[2017-05-13 15:57] LABS: ALB/GLOB RATIO 1.2 (1.1-1.8); ALBUMIN 4.1 g/dL (3.0-4.8); ALT/SGPT 32 U/L (7-56); AST/SGOT 30 U/L (14-36); BLOOD UREA NITROGEN 9 mg/dL (7-21); CALCIUM 9.7 mg/dL (8.4-10.5); GFR AFRICAN-AMERICAN > 60; GFR NON-AFRICAN AMERICAN > 60
[2017-05-13 16:04] LABS: BASO # 0.04 K/mm3 (0.0-2.0); BASO % 0.4 % (0.0-3.0); EOS # 0.6 (0.0-0.7); EOS % 6.4 % (1.5-5.0); GRAN # 4.67 (1.4-6.5); GRAN % 48.6 % (50.0-68.0); HEMOGLOBIN 14.2 g/dL (12.0-16.0); LYMPH # 3.4 (1.2-3.4); LYMPH % 34.9 % (22.0-35.0); MEAN CELL VOLUME 90.6 fl (80.0-105.0); MEAN CORPUSCULAR HEMOGLOBIN 29.6 pg (25.0-35.0); MEAN CORPUSCULAR HGB CONC 32.6 g/dl (31.0-37.0); MEAN PLATELET VOLUME 10.8 fl (7.0-11.0); MONO # 0.9 (0.1-0.6); MONO % 9.7 % (1.0-6.0); RBC 4.8 10^6/uL (3.5-6.1); RED CELL DISTRIBUTION WIDTH 13.3 % (11.5-14.5); WHITE BLOOD COUNT 9.6 10^3/ul (4.5-11.0)
[2017-05-13 16:27] LABS: URINE BILIRUBIN NEGATIVE (NEGATIVE); URINE BLOOD NEGATIVE (NEGATIVE); URINE GLUCOSE (UA) NEGATIVE (NEGATIVE); URINE LEUKOCYTE ESTERASE NEGATIVE Leu/uL (NEGATIVE); URINE NITRATE NEGATIVE (NEGATIVE); URINE PROTEIN NEGATIVE mg/dL (<30 mg/dL); URINE UROBILINOGEN 0.2 E.U./dL (<1 E.U./dL)
[2017-05-13 16:31] LABS: URINE APPEARANCE CLEAR (CLEAR); URINE COLOR YELLOW (YELLOW)
--- NOTE | 2017-05-13 18:04 | CT ---
PROCEDURE: CT HEAD WITHOUT CONTRAST. HISTORY: Headache. Elevated BP, r/o bleed COMPARISON: Comparison made with CT scan brain 06/12/2016 TECHNIQUE: Axial computed tomography images were obtained through the head/brain without intravenous contrast. Radiation dose: Total exam DLP = 891.45 mGy-cm. This CT exam was performed using one or more of the following dose reduction techniques: Automated exposure control, adjustment of the mA and/or kV according to patient size, and/or use of iterative reconstruction technique. FINDINGS: HEMORRHAGE: No intracranial hemorrhage. BRAIN: Suspect minimal chronic periventricular white matter ischemic changes. No evidence of large acute infarct. No obvious parenchymal nor extra-axial masses or collections seen on this noncontrast study. Re- demonstrated are tiny radiopaque densities in the dentate nuclei possibly representing early dentate nuclei calcifications. VENTRICLES: Ventricular and sulcal size within range of normal for this patient's stated age. No obstructive hydrocephalus. . CALVARIUM: Calvarium appears intact. PARANASAL SINUSES: Frontal sinuses remain hypoplastic unchanged from prior exam. Minor polypoid like mucosal thickening seen in the right chamber sphenoid sinus. MASTOID AIR CELLS: Unremarkable as visualized. No inflammatory changes. OTHER FINDINGS: Re- demonstrated are changes of bilateral cataract surgery. IMPRESSION: No acute intracranial hemorrhage. Suspect minimal chronic periventricular white matter ischemic changes.
[2017-05-13 18:29] VITALS: BP 139/80; PULSE 79; TEMP 98
[2017-05-13 18:31] VITALS: O2SAT 99
== END 2017-05-13 18:31 | disposition home or self-care (01) ==
LOC: ED 14:19
DX: R51 Headache (principal); I10 Essential (primary) hypertension; F17.210 Nicotine dependence, cigarettes, uncomplicated
CPT/HCPCS: 70450; 80053; 81003; 83735; 85025; 96374; 96375; 99283; J1200; J2765; J7040

== ENCOUNTER 2018-02-03 19:31 | Observation (INO) | payer MEDICAID ==
[2018-02-03 19:36] VITALS: BMI 24.7
[2018-02-03 20:50] LABS: ALB/GLOB RATIO 1.2 (1.1-1.8); ALBUMIN 4.1 g/dL (3.0-4.8); ALT/SGPT 25 U/L (7-56); AST/SGOT 28 U/L (14-36); BLOOD UREA NITROGEN 12 mg/dL (7-21); CALCIUM 9.5 mg/dL (8.4-10.5); GFR NON-AFRICAN AMERICAN > 60
[2018-02-03 20:51] LABS: BASO # 0.04 K/mm3 (0.0-2.0); BASO % 0.3 % (0.0-3.0); EOS # 0.8 (0.0-0.7); EOS % 6.1 % (1.5-5.0); GRAN # 5.7 (1.4-6.5); GRAN % 46.6 % (50.0-68.0); HEMOGLOBIN 14.1 g/dL (12.0-16.0); LYMPH # 4.7 (1.2-3.4); LYMPH % 38.4 % (22.0-35.0); MEAN CELL VOLUME 88.7 fl (80.0-105.0); MEAN CORPUSCULAR HEMOGLOBIN 29.6 pg (25.0-35.0); MEAN CORPUSCULAR HGB CONC 33.4 g/dl (31.0-37.0); MEAN PLATELET VOLUME 10.9 fl (7.0-11.0); MONO # 1.1 (0.1-0.6); MONO % 8.6 % (1.0-6.0); RBC 4.76 10^6/uL (3.5-6.1); RED CELL DISTRIBUTION WIDTH 13.3 % (11.5-14.5); WHITE BLOOD COUNT 12.2 10^3/ul (4.5-11.0)
[2018-02-03 21:00] LABS: TROPONIN I < 0.01 ng/mL
[2018-02-03 22:24] LABS: URINE BILIRUBIN NEGATIVE (NEGATIVE); URINE BLOOD NEGATIVE (NEGATIVE); URINE GLUCOSE (UA) NEGATIVE (NEGATIVE); URINE LEUKOCYTE ESTERASE NEGATIVE Leu/uL (NEGATIVE); URINE PROTEIN NEGATIVE mg/dL (<30 mg/dL)
[2018-02-03 22:25] LABS: URINE APPEARANCE CLEAR (CLEAR); URINE COLOR YELLOW (YELLOW)
--- NOTE | 2018-02-03 23:35 | ED PDOC ---
Arrival/HPI - General Historian: Patient - History of Present Illness Narrative History of Present Illness (Text): 02/04/18 01:37 57yr old female with left sided chest pain that started at 6pm. pt states pain is located to the left side of the chest, non radiating. pt denies abdominal pain. no n/v/d/c. no fever/chill. no cough. no dizziness or weakness. pt denies SOB. pt is + smoker. no other complaints. <Uma Guo - Last Filed: 02/04/18 01:37> <Ellie Summers - Last Filed: 02/06/18 13:35> - General Chief Complaint: Chest Pain Time Seen by Provider: 02/03/18 20:02 Past Medical History - Provider Review Nursing Documentation Reviewed: Yes - Travel History Have you recently traveled outside [place] w/in the past 3 mons?: No - Infectious Disease Hx of Infectious Diseases: None - Tetanus Immunization Tetanus Immunization: Unknown - Cardiac Hx Cardiac Disorders: Yes Hx Hypertension: Yes - Pulmonary Hx Respiratory Disorders: No - Neurological Hx Neurological Disorder: Yes Hx Dizziness: Yes - HEENT Hx HEENT Disorder: Yes Hx Cataracts: Yes (with surgery) - Renal Hx Renal Disorder: No - Endocrine/Metabolic Hx Endocrine Disorders: Yes Hx Diabetes Mellitus Type 2: Yes ("Borderline") - Hematological/Oncological Hx Blood Disorders: No - Integumentary Hx Dermatological Disorder: No - Musculoskeletal/Rheumatological Hx Musculoskeletal Disorders: No Hx Falls: No - Gastrointestinal Hx Gastrointestinal Disorders: No - Genitourinary/Gynecological Hx Genitourinary Disorders: No - Psychiatric Hx Psychophysiologic Disorder: Yes Hx Anxiety: Yes Hx Substance Use: No - Surgical History Other/Comment: Cataracts w/ surgery - Anesthesia Hx Anesthesia: Yes Hx Anesthesia Reactions: No Hx Malignant Hyperthermia: No - Suicidal Assessment Feels Threatened In Home Enviroment: No <Uma Guo - Last Filed: 02/04/18 01:37> Family/Social History - Physician Review Nursing Documentation Reviewed: Yes Family/Social History: Unknown Family HX Smoking Status: Light Smoker < 10 Cigarettes Daily Hx Alcohol Use: No Hx Substance Use: No Hx Substance Use Treatment: No <Uma Guo - Last Filed: 02/04/18 01:37> Allergies/Home Meds <Uma Guo - Last Filed: 02/04/18 01:37> <Ellie Summers - Last Filed: 02/06/18 13:35> Allergies/Adverse Reactions: Allergies morphine Allergy (Verified 05/13/17 14:21) SHORTNESS OF BREATH Home Medications: Home Meds Medication Instructions Recorded Confirmed RX: Calcium Carbonate/Vitamin D 1 tab PO DAILY 02/06/15 05/13/17 [Calcium 900 W/Vitamin D 300 mg-100 Iu] RX: Gabapentin [Neurontin] 100 mg PO TID 02/06/15 05/13/17 Review of Systems - Review of Systems Constitutional: absent: Fatigue, Fevers Respiratory: absent: SOB, Cough Cardiovascular: Chest Pain. absent: Palpitations Gastrointestinal: absent: Abdominal Pain, Nausea, Vomiting Genitourinary Female: absent: Dysuria Musculoskeletal: absent: Arthralgias, Neck Pain Skin: absent: Rash, Pruritis Neurological: absent: Headache, Dizziness Endocrine: absent: Diaphoresis Psychiatric: absent: Anxiety, Depression <Uma Guo - Last Filed: 02/04/18 01:37> Physical Exam Vital Signs Reviewed: Yes Vital Signs Temp Pulse Resp BP Pulse Ox 02/03/18 22:48 97.9 F 67 18 131/64 95 02/03/18 19:40 97.7 F 88 20 169/79 H 97 Temperature: Afebrile Blood Pressure: Hypertensive Pulse: Regular Respiratory Rate: Normal Appearance: Positive for: Well-Appearing, Non-Toxic, Comfortable Pain Distress: None Mental Status: Positive for: Alert and Oriented X 3 - Systems Exam Head: Present: Atraumatic Mouth: Present: Moist Mucous Membranes Neck: Present: Normal Range of Motion Respiratory/Chest: Present: Clear to Auscultation, Good Air Exchange. No: Respiratory Distress, Accessory Muscle Use, Tender to Palpation Cardiovascular: Present: Regular Rate and Rhythm, Normal S1, S2. No: Murmurs Abdomen: No: Tenderness, Distention, Peritoneal Signs, Rebound, Guarding Back: Present: Normal Inspection. No: CVA Tenderness, Midline Tenderness, Paraspinal Tenderness Upper Extremity: Present: Normal ROM Lower Extremity: Present: Normal ROM. No: Edema Neurological: Present: GCS=15, Speech Normal Skin: Present: Warm, Dry, Normal Color. No: Rashes Psychiatric: Present: Alert, Oriented x 3 <Uma Guo - Last Filed: 02/04/18 01:37> Vital Signs Temp Pulse Resp BP Pulse Ox 02/04/18 00:34 65 18 128/60 97 02/03/18 22:48 97.9 F 67 18 131/64 95 02/03/18 19:40 97.7 F 88 20 169/79 H 97 <Ellie Summers - Last Filed: 02/06/18 13:35> Medical Decision Making ED Course and Treatment: 02/03/18 23:33 pt with chest pain, left sided, at 6pm. pt was given ASA in the ambulance. vitals stable. pt in no distress. cbc; cmp; wnl trop: wnl ekg; NSR at 88b/m no st elvations, qtc 433 cxr: wnl ua; wnl pt reassessment; pt resting comfortably in er. pt with smoking hx, htn, high cholesterol. case discussed with Dr. Stiven ochoa. will Admit observational status to Tele for chest pain r/o acs. impression; chest pain Admit observational status to tele; - Lab Interpretations Lab Results: 02/03/18 20:25 02/03/18 20:25 Lab Results 02/03/18 22:15: Urine Color Yellow, Urine Appearance Clear, Urine pH 6.0, Ur Specific [place] >= 1.030, Urine Protein Negative, Urine Glucose (UA) Negative, Urine Ketones Negative, Urine Blood Negative, Urine Nitrate Negative, Urine Bilirubin Negative, Urine Urobilinogen 1.0 H, Ur Leukocyte Esterase Negative 02/03/18 20:25: Sodium 142, Potassium 4.1, Chloride 105, Carbon Dioxide 30, Anion Gap 12, BUN 12, Creatinine 0.6 L, Est GFR ( Amer) > 60, Est GFR (Non-Af Amer) > 60, Random Glucose 105, Calcium 9.5, Magnesium 2.0, Total Bilirubin 0.2, AST 28, ALT 25, Alkaline Phosphatase 110, Lactate Dehydrogenase 502, Total Creatine Kinase 166, Troponin I < 0.01, Total Protein 7.4, Albumin 4.1, Globulin 3.3, Albumin/Globulin Ratio 1.2 02/03/18 20:25: WBC 12.2 H D, RBC 4.76, Hgb 14.1, Hct 42.2, MCV 88.7, MCH 29.6, MCHC 33.4, RDW 13.3, Plt Count 265, MPV 10.9, Gran % 46.6 L, Lymph % (Auto) 38.4 H, [place] % (Auto) 8.6 H, Eos % (Auto) 6.1 H, Baso % (Auto) 0.3, Gran # 5.70, Lymph # (Auto) 4.7 H, [place] # (Auto) 1.1 H, Eos # (Auto) 0.8 H, Baso # (Auto) 0.04 - RAD Interpretation Radiology Orders: 02/03/18 20:28 CHEST PORTABLE [RAD] Stat <Uma Guo - Last Filed: 02/04/18 01:37> - Lab Interpretations Lab Results: 02/03/18 20:25 02/03/18 20:25 Lab Results 02/03/18 22:15: Urine Color Yellow, Urine Appearance Clear, Urine pH 6.0, Ur Specific [place] >= 1.030, Urine Protein Negative, Urine Glucose (UA) Negative, Urine Ketones Negative, Urine Blood Negative, Urine Nitrate Negative, Urine Bilirubin Negative, Urine Urobilinogen 1.0 H, Ur Leukocyte Esterase Negative 02/03/18 20:25: Free T4 1.15, TSH 3rd Generation 1.21 02/03/18 20:25: Hemoglobin A1c 6.0 02/03/18 20:25: NT-Pro-B Natriuret Pep 28.2 02/03/18 20:25: Triglycerides 136, Cholesterol 163, LDL Cholesterol Direct 106, HDL Cholesterol 41 02/03/18 20:25: Sodium 142, Potassium 4.1, Chloride 105, Carbon Dioxide 30, Anion Gap 12, BUN 12, Creatinine 0.6 L, Est GFR ( Amer) > 60, Est GFR (Non-Af Amer) > 60, Random Glucose 105, Calcium 9.5, Magnesium 2.0, Total Bilirubin 0.2, AST 28, ALT 25, Alkaline Phosphatase 110, Lactate Dehydrogenase 502, Total Creatine Kinase 166, Troponin I < 0.01, Total Protein 7.4, Albumin 4.1, Globulin 3.3, Albumin/Globulin Ratio 1.2 02/03/18 20:25: WBC 12.2 H D, RBC 4.76, Hgb 14.1, Hct 42.2, MCV 88.7, MCH 29.6, MCHC 33.4, RDW 13.3, Plt Count 265, MPV 10.9, Gran % 46.6 L, Lymph % (Auto) 38.4 H, [place] % (Auto) 8.6 H, Eos % (Auto) 6.1 H, Baso % (Auto) 0.3, Gran # 5.70, Lymph # (Auto) 4.7 H, [place] # (Auto) 1.1 H, Eos # (Auto) 0.8 H, Baso # (Auto) 0.04 - RAD Interpretation Radiology Orders: 02/03/18 20:28 CHEST PORTABLE [RAD] Stat - Medication Orders Current Medication Orders: Discontinued Medications Aspirin (Aspirin Chewable) 81 mg PO DAILY [facility] Last Admin: 02/04/18 09:13 Dose: 81 mg Famotidine (Pepcid) 40 mg PO HS [facility] Last Admin: 02/03/18 23:51 Dose: 40 mg Heparin Sodium (Porcine) (Heparin) 5,000 units SC Q8 [facility]; Protocol Last Admin: 02/04/18 06:46 Dose: 5,000 units Subcutaneous Administrations Document 02/04/18 06:46 OWUSR (Rec: 02/04/18 06:46 OWUSR [id number]) Injection Site MAR Injection Site Left Abdomen Charges for Administration # of Subcutaneous Administrations 1 Ibuprofen (Motrin Tab) 600 mg PO TID [facility] Last Admin: 02/04/18 09:10 Dose: 600 mg MAR Pain/Vitals Document 02/04/18 09:10 RT (Rec: 02/04/18 09:11 RT [facility] [id number]) Pain Reassessment Is This A Pain ReAssessment? Yes Pain Scale Used Protocol: PSCALES Pain Scale Used Numeric Lidocaine (Lidoderm) 1 ea TD DAILY [facility] Metoprolol Tartrate (Lopressor) 25 mg PO BID [facility] Metoprolol Tartrate (Lopressor) 50 mg PO BID [facility] Last Admin: 02/04/18 09:11 Dose: 50 mg MAR Pulse and Blood Pressure Document 02/04/18 09:11 RT (Rec: 02/04/18 09:12 RT [facility] [id number]) Pulse Pulse Rate (60-90) 78 Nicotine (Nicoderm Cq) 1 patch TD DAILY [facility] Last Admin: 02/04/18 09:09 Dose: 1 patch MAR Transdermal Patch Site Document 02/04/18 09:09 RT (Rec: 02/04/18 09:09 RT [id number]) Transdermal Patch Site Transdermal Patch Site Left Shoulder Pantoprazole Sodium (Protonix Ec Tab) 40 mg PO 0600 [facility] Last Admin: 02/04/18 06:46 Dose: 40 mg <Ellie Summers - Last Filed: 02/06/18 13:35> - PA / ANIMAL SITTER / Resident Statement MD/ has reviewed & agrees with the documentation as recorded. <Ellie Summers - Last Filed: 02/06/18 13:35> Disposition/Present on Arrival - Present on Arrival Any Indicators Present on Arrival: No History of DVT/PE: No History of Uncontrolled Diabetes: No Urinary Catheter: No History of Decub. Ulcer: No History Surgical Site Infection Following: None - Disposition Have Diagnosis and Disposition been Completed?: Yes Disposition Time: 22:30 Patient Plan: Observation <Uma Guo - Last Filed: 02/04/18 01:37> <Ellie Summers - Last Filed: 02/06/18 13:35> - Disposition Diagnosis: Chest pain Disposition: HOSPITALIZED Condition: FAIR
--- NOTE | 2018-02-04 01:10 | CP.PCM.HP ---
History of Present Illness - History of Present Illness History of Present Illness: PGY-[address] Shaffer Ms Brownlee, 56F, with PMH significant for tobacco abuse, TIA in 2002, HTN/fatty liver, borderline DM, and vertigo C/O chest pain. 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 De nies diaphoresis, nausea, dizziness. She took ASA 81 x 4 at home, the pain subsided to 6/10. Currently her pain is at 3/10. In the past 3 weeks, pt has increased palpitation with tremors, tingling sensation in both hands, increase cold intolerance and fluctuating weight from 139 lb to 128 lb in 1 month At baseline, she has orthopnea, sleep on 2 pillows. (+) dyspnea on exertion with walking 1 blocks or going up a flight of stairs. (+) SOB sweeping floors/house chores. She reports last chest pain was 1 year ago but did not follow up outpatient for scheduled stress test. Her diet mostly includes fast food and take-outs. ROS - Denies any dizziness, shortness of breath, nausea, vomiting, sweating associated with episode. Denies abdominal pain, change in vision. dizziness, dysuria. Upon ED arrival, VSS CBC 12.2 with lymphocytosis CMP unremarkable, BUN 12, Cre 0.6 trops 0.01 U/A neg EKG NSR 88. Non specific ST/TW changes. QTc 433 CXR __pending official read. Per me, no sig changes compared to 2017 PMH: Active smoker (1/2 ppd x 40 years) Hx of TIA in 2002 HTN, (Echo 2016, EF 61, RVSSP 24; Exercise stress text 2014 - no ischemia) Pre-DM (A1C 6.18 Nov 2016) GERD; Fatty liver Osteoporosis Cataracts Vertigo PSH: Cholecystectomy, Carpal tunnel surgery on R hand, Hernia repair Cataract surgery 2016 FMH: Father: HTN, DM2 Mother: HTN, DM2, DE @ 74 SocHx: Cristopher freddy. Live with daughter and grand-daughter Tobacco: 0.5 PPD for 40 years No Etoh; No drug All: Morphine - causes palpitation Meds: Metoprolol 50 BID, ASA 81 PMD: Dr Johnson. 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 Present on Admission - Present on Admission Any Indicators Present on Admission: No Past Patient History - Infectious Disease Hx of Infectious Diseases: None - Tetanus Immunizations Tetanus Immunization: Unknown - Past Social History Smoking Status: Light Smoker < 10 Cigarettes Daily - CARDIAC Hx Cardiac Disorders: Yes Hx Hypertension: Yes - PULMONARY Hx Respiratory Disorders: No - NEUROLOGICAL Hx Neurological Disorder: Yes Hx Dizziness: Yes - HEENT Hx HEENT Problems: Yes Hx Cataracts: Yes (with surgery) - RENAL Hx Chronic Kidney Disease: No - ENDOCRINE/METABOLIC Hx Endocrine Disorders: Yes Hx Diabetes Mellitus Type 2: Yes ("Borderline") - HEMATOLOGICAL/ONCOLOGICAL Hx Blood Disorders: No - INTEGUMENTARY Hx Dermatological Problems: No - MUSCULOSKELETAL/RHEUMATOLOGICAL Hx Musculoskeletal Disorders: No Hx Falls: No - GASTROINTESTINAL Hx Gastrointestinal Disorders: No - GENITOURINARY/GYNECOLOGICAL Hx Genitourinary Disorders: No - PSYCHIATRIC Hx Psychophysiologic Disorder: Yes Hx Anxiety: Yes Hx Substance Use: No - SURGICAL HISTORY Other/Comment: Cataracts w/ surgery - ANESTHESIA Hx Anesthesia: Yes Hx Anesthesia Reactions: No Hx Malignant Hyperthermia: No Meds Allergies/Adverse Reactions: Allergies Allergy/AdvReac Type Severity Reaction Status Date / Time morphine Allergy SHORTNESS Verified 05/13/17 14:21 OF BREATH Physical Exam - Constitutional Appears: No Acute Distress - Head Exam Head Exam: ATRAUMATIC, NORMAL INSPECTION, NORMOCEPHALIC - Eye Exam Eye Exam: EOMI, Normal appearance, PERRL. absent: Scleral icterus Pupil Exam: NORMAL ACCOMODATION - ENT Exam ENT Exam: Mucous Membranes Moist - Neck Exam Neck exam: Positive for: Normal Inspection. Negative for: Lymphadenopathy Additional comments: No JVD - Respiratory Exam Respiratory Exam: Clear to Auscultation Bilateral, NORMAL BREATHING PATTERN. absent: Decreased Breath Sounds, Rales, Rhonchi, Wheezes - Cardiovascular Exam Cardiovascular Exam: REGULAR RHYTHM, +S1, +S2. absent: Systolic Murmur - GI/Abdominal Exam GI & Abdominal Exam: Normal Bowel Sounds, Soft. absent: Distended, Firm, Guarding, Rebound, Rigid, Tenderness - Extremities Exam Extremities exam: Positive for: normal capillary refill, normal inspection, pedal pulses present. Negative for: calf tenderness, pedal edema - Back Exam Back exam: absent: CVA tenderness (L), CVA tenderness (R), paraspinal tenderness - Neurological Exam Neurological exam: Alert, CN II-XII Intact, Oriented x3 - Psychiatric Exam Psychiatric exam: Normal Affect, Normal Mood - Skin Skin Exam: Dry, Warm Results - Vital Signs Recent Vital Signs: Last Vital Signs Temp 97.9 F 02/03/18 22:48 Pulse 65 02/04/18 00:34 Resp 18 02/04/18 00:34 BP 128/60 02/04/18 00:34 Pulse Ox 97 02/04/18 00:34 - Labs Result Diagrams: 02/03/18 20:25 02/03/18 20:25 Labs: Laboratory Results - last 24 hr 02/03/18 02/03/18 02/03/18 20:25 20:25 22:15 WBC 12.2 H D RBC 4.76 Hgb 14.1 Hct 42.2 MCV 88.7 MCH 29.6 MCHC 33.4 RDW 13.3 Plt Count 265 MPV 10.9 Gran % 46.6 L Lymph % (Auto) 38.4 H [place] % (Auto) 8.6 H Eos % (Auto) 6.1 H Baso % (Auto) 0.3 Gran # 5.70 Lymph # (Auto) 4.7 H [place] # (Auto) 1.1 H Eos # (Auto) 0.8 H Baso # (Auto) 0.04 Sodium 142 Potassium 4.1 Chloride 105 Carbon Dioxide 30 Anion Gap 12 BUN 12 Creatinine 0.6 L Est GFR ( Amer) > 60 Est GFR (Non-Af Amer) > 60 Random Glucose 105 Calcium 9.5 Magnesium 2.0 Total Bilirubin 0.2 AST 28 ALT 25 Alkaline Phosphatase 110 Lactate Dehydrogenase 502 Total Creatine Kinase 166 Troponin I < 0.01 Total Protein 7.4 Albumin 4.1 Globulin 3.3 Albumin/Globulin Ratio 1.2 Urine Color Yellow Urine Appearance Clear Urine pH 6.0 Ur Specific [place] >= 1.030 Urine Protein Negative Urine Glucose (UA) Negative Urine Ketones Negative Urine Blood Negative Urine Nitrate Negative Urine Bilirubin Negative Urine Urobilinogen 1.0 H Ur Leukocyte Esterase Negative Assessment & Plan - Assessment and Plan (Free Text) Plan: Chest pain R/O ACS - cardiac iso x 3 - AM EKG - Telemetry - TSH, Free T4, Hb A1C - Continue home metoprolol 50 BID, ASA 81 daily - Keep patient NPO for possible nuclear stress test Atypical chest pain, possibly costochondritis. No swelling, No rash, pain reproducible - Motrin 600 TID with protonix Dyspnea with orthopnea R/O CHF - CXR look slightly overload. pending official read - No JVD nor LE edema - follow up on Echocardiogram, pro-BNP Palpitation with tremors and cold intolerance - Deconditioning? - Follow up on TSH, Free T4 GERD - protonix Heparin SC s/r/d/w Dr Shaffer
[2018-02-04 02:08] LABS: HDL CHOLESTEROL 41 mg/dL (29-60)
[2018-02-04] MEDS ORDERED: Sodium Chloride 0.9% 1,000 ML IV SCH (02:15)
[2018-02-04 02:19] LABS: LDL CHOLESTEROL 106 mg/dL (0-129)
[2018-02-04 02:48] LABS: FREE T4 1.15 ng/dL (0.78-2.19)
[2018-02-04 03:03] VITALS: RESP 20
[2018-02-04] MEDS ORDERED: Pantoprazole 40 mg EC Tab PO SCH (06:00)
[2018-02-04 06:04] VITALS: BP 117/69; TEMP 98; O2SAT 96
[2018-02-04 06:45] LABS: BASO # 0.04 K/mm3 (0.0-2.0); BASO % 0.4 % (0.0-3.0); EOS # 0.8 (0.0-0.7); EOS % 7.4 % (1.5-5.0); GRAN # 4.69 (1.4-6.5); GRAN % 43.7 % (50.0-68.0); HEMOGLOBIN 13.1 g/dL (12.0-16.0); LYMPH # 4.4 (1.2-3.4); LYMPH % 41.1 % (22.0-35.0); MEAN CELL VOLUME 88.3 fl (80.0-105.0); MEAN CORPUSCULAR HEMOGLOBIN 28.4 pg (25.0-35.0); MEAN CORPUSCULAR HGB CONC 32.2 g/dl (31.0-37.0); MEAN PLATELET VOLUME 10.6 fl (7.0-11.0); MONO # 0.8 (0.1-0.6); MONO % 7.4 % (1.0-6.0); RBC 4.61 10^6/uL (3.5-6.1); RED CELL DISTRIBUTION WIDTH 13.4 % (11.5-14.5); WHITE BLOOD COUNT 10.7 10^3/ul (4.5-11.0)
[2018-02-04 07:55] LABS: ALB/GLOB RATIO 1.2 (1.1-1.8); ALBUMIN 3.5 g/dL (3.0-4.8); ALT/SGPT 23 U/L (7-56); AST/SGOT 22 U/L (14-36); BLOOD UREA NITROGEN 9 mg/dL (7-21); CALCIUM 9.2 mg/dL (8.4-10.5); GFR NON-AFRICAN AMERICAN > 60
--- NOTE | 2018-02-04 09:09 | RAD ---
HISTORY: chest pain COMPARISON: Chest x-ray performed 12/11/16 TECHNIQUE: Chest, one view. FINDINGS: LUNGS: No focal consolidation. Please note that chest x-ray has limited sensitivity for the detection of pulmonary masses. PLEURA: No significant pleural effusion identified. No definite pneumothorax . CARDIOVASCULAR: The cardiomediastinal silhouette appears within normal limits of size. Mild atherosclerotic calcification identified. OSSEOUS STRUCTURES: Degenerative changes of the spine. VISUALIZED UPPER ABDOMEN: Unremarkable. OTHER FINDINGS: None. IMPRESSION: No focal consolidation, significant pleural effusion, or definite pneumothorax identified.
[2018-02-04 09:18] VITALS: PULSE 78
--- NOTE | 2018-02-04 10:11 | CARD ---
APPROVED REPORT Date of service: 02/03/2018 EKG Measurement Heart [id number] <Conclusion> Normal sinus rhythm Left axis deviation Nonspecific ST abnormality Abnormal ECG
--- NOTE | 2018-02-04 10:24 | CARD ---
APPROVED REPORT Date of service: 02/04/2018 EKG Measurement Heart [id number] <Conclusion> Normal sinus rhythm with sinus arrhythmia Left axis deviation Abnormal ECG
[2018-02-04] MEDS ORDERED: Lidocaine 5% Patch TD SCH (12:50)
--- NOTE | 2018-02-04 14:25 | CP.PCM.DIS ---
<Nick Dodson - Last Filed: 02/04/18 14:36> Provider - Provider Date of Admission: 02/03/18 23:31 Attending physician: Daphnie Morales MD Consults: Dr. Yao Time Spent in preparation of Discharge (in minutes): 45 Hospital Course - Lab Results Lab Results: Most Recent Lab Values WBC 10.7 10^3/ul (4.5-11.0) 02/04/18 05:35 RBC 4.61 10^6/uL (3.5-6.1) 02/04/18 05:35 Hgb 13.1 g/dL (12.0-16.0) 02/04/18 05:35 Hct 40.7 % (36.0-48.0) 02/04/18 05:35 MCV 88.3 fl (80.0-105.0) 02/04/18 05:35 MCH 28.4 pg (25.0-35.0) 02/04/18 05:35 MCHC 32.2 g/dl (31.0-37.0) 02/04/18 05:35 RDW 13.4 % (11.5-14.5) 02/04/18 05:35 Plt Count 259 10^3/uL (120.0-450.0) 02/04/18 05:35 MPV 10.6 fl (7.0-11.0) 02/04/18 05:35 Gran % 43.7 % (50.0-68.0) L 02/04/18 05:35 Lymph % (Auto) 41.1 % (22.0-35.0) H 02/04/18 05:35 Putnam % (Auto) 7.4 % (1.0-6.0) H 02/04/18 05:35 Eos % (Auto) 7.4 % (1.5-5.0) H 02/04/18 05:35 Baso % (Auto) 0.4 % (0.0-3.0) 02/04/18 05:35 Gran # 4.69 (1.4-6.5) 02/04/18 05:35 Lymph # (Auto) 4.4 (1.2-3.4) H 02/04/18 05:35 Putnam # (Auto) 0.8 (0.1-0.6) H 02/04/18 05:35 Eos # (Auto) 0.8 (0.0-0.7) H 02/04/18 05:35 Baso # (Auto) 0.04 K/mm3 (0.0-2.0) 02/04/18 05:35 D-Dimer, Quantitative < 200 ng/mlDDU (0-243) 02/04/18 10:55 Sodium 140 mmol/L (132-148) 02/04/18 05:35 Potassium 4.1 mmol/L (3.6-5.0) 02/04/18 05:35 Chloride 108 mmol/L (98-107) H 02/04/18 05:35 Carbon Dioxide 25 mmol/L (21-33) 02/04/18 05:35 Anion Gap 11 (10-20) 02/04/18 05:35 BUN 9 mg/dL (7-21) 02/04/18 05:35 Creatinine 0.5 mg/dl (0.7-1.2) L 02/04/18 05:35 Est GFR ( Amer) > 60 02/04/18 05:35 Est GFR (Non-Af Amer) > 60 02/04/18 05:35 Random Glucose 94 mg/dL (70-110) 02/04/18 05:35 Hemoglobin A1c 6.0 % (4.2-6.5) 02/03/18 20:25 Calcium 9.2 mg/dL (8.4-10.5) 02/04/18 05:35 Magnesium 2.0 mg/dL (1.7-2.2) 02/03/18 20:25 Total Bilirubin 0.3 mg/dL (0.2-1.3) 02/04/18 05:35 AST 22 U/L (14-36) 02/04/18 05:35 ALT 23 U/L (7-56) 02/04/18 05:35 Alkaline Phosphatase 100 U/L (38-126) 02/04/18 05:35 Lactate Dehydrogenase 502 U/L (333-699) 02/03/18 20:25 Total Creatine Kinase 166 U/L (35-230) 02/03/18 20:25 Troponin I < 0.01 ng/mL 02/04/18 07:30 NT-Pro-B Natriuret Pep 28.2 pg/mL (0-450) 02/03/18 20:25 Total Protein 6.4 g/dL (5.8-8.3) 02/04/18 05:35 Albumin 3.5 g/dL (3.0-4.8) 02/04/18 05:35 Globulin 2.9 gm/dL 02/04/18 05:35 Albumin/Globulin Ratio 1.2 (1.1-1.8) 02/04/18 05:35 Triglycerides 136 mg/dL (35-160) 02/03/18 20:25 Cholesterol 163 mg/dL (130-200) 02/03/18 20:25 LDL Cholesterol Direct 106 mg/dL (0-129) 02/03/18 20:25 HDL Cholesterol 41 mg/dL (29-60) 02/03/18 20:25 Free T4 1.15 ng/dL (0.78-2.19) 02/03/18 20:25 TSH 3rd Generation 1.21 mIU/mL (0.46-4.68) 02/03/18 20:25 Urine Color Yellow (YELLOW) 02/03/18 22:15 Urine Appearance Clear (CLEAR) 02/03/18 22:15 Urine pH 6.0 (4.7-8.0) 02/03/18 22:15 Ur Specific [place] >= 1.030 (1.005-1.035) 02/03/18 22:15 Urine Protein Negative mg/dL (<30 mg/dL) 02/03/18 22:15 Urine Glucose (UA) Negative mg/dL (NEGATIVE) 02/03/18 22:15 Urine Ketones Negative mg/dL (NEGATIVE) 02/03/18 22:15 Urine Blood Negative (NEGATIVE) 02/03/18 22:15 Urine Nitrate Negative (NEGATIVE) 02/03/18 22:15 Urine Bilirubin Negative (NEGATIVE) 02/03/18 22:15 Urine Urobilinogen 1.0 E.U./dL (<1 E.U./dL) H 02/03/18 22:15 Ur Leukocyte Esterase Negative Ivette/uL (NEGATIVE) 02/03/18 22:15 - Hospital Course Hospital Course: Upon admission Patient is a 57F with PMH significant for tobacco abuse, TIA in 2002, HTN/fatty liver, borderline DM, and vertigo complained of chest pain. 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 Denies diaphoresis, nausea, dizziness. She took ASA 81 x 4 at home, the pain subsided to 6/10. Currently her pain is at 3/10. In the past 3 weeks, pt has increased palpitation with tremors, tingling sensation in both hands, increase cold intolerance and fluctuating weight from 139 lb to 128 lb in 1 month. At baseline, she has orthopnea, sleep on 2 pillows. (+) dyspnea on exertion with walking 1 blocks or going up a flight of stairs. (+) SOB sweeping floors/house chores. She reports last chest pain was 1 year ago but did not follow up outpatient for scheduled stress test. Her diet mostly includes fast food and take-outs. Hospital Course 57 year old female admitted for chest pain. Troponins x 3 were negative. EKG resulted NSR@63 with sinus arrhythmia, left axis deviation. Cxray was negative for any acute disease. ACS ruled out. Repeat EKG resulted NSR @88, LAD, nonspecific ST abnormality. TSH, free T4, were normal. HgbA1c was 7.1. Echo performed. Cardiology was consulted, and cleared patient for discharge and recommended to follow up outpatient for stress test. D-dimer resulted WNL. Patient counseled on having outpatient pulmonary function test for possible COPD and symptoms of dyspnea on exertion. Counseled on smoking cessation. Patient medically stable for discharge. Discharge plan Patient is stable for discharge to home as per Dr. Morales. She was counseled to return to the emergency department if symptoms return or worsen. Patient is to follow up with primary medical doctor, Dr. Johnson, within 3-5 days of discharge. Patient is to follow up with cardiology, Dr. Yao, within 3-5 days of discharge. Patient is to have outpatient stress test performed. Patient is to continue all home medications as prescribed in discharge instructions. Reviewed all medications with patient, and she understands instructions. Counseled patient on smoking cessation. Patient understands and agrees with discharge plan Discharge Exam - Head Exam Head Exam: ATRAUMATIC, NORMAL INSPECTION, NORMOCEPHALIC - Eye Exam Eye Exam: EOMI, Normal appearance. absent: Nystagmus, Scleral icterus - Respiratory Exam Respiratory Exam: Chest Wall Tenderness, NORMAL BREATHING PATTERN. absent: Prol onged Expiratory Phase, Rales, Rhonchi, Wheezes, Respiratory Distress - Cardiovascular Exam Cardiovascular Exam: REGULAR RHYTHM, +S1, +S2. absent: Tachycardia, Systolic Murmur - GI/Abdominal Exam GI & Abdominal Exam: Normal Bowel Sounds, Soft. absent: Diminished Bowel Sounds, Distended, Firm, Guarding, Tenderness - Extremities Exam Extremities exam: normal inspection - Neurological Exam Neurological exam: Alert, Oriented x3 - Psychiatric Exam Psychiatric exam: Normal Affect, Normal Mood - Skin Skin Exam: Intact, Normal Color Discharge Plan - Follow Up Plan Condition: FAIR Disposition: HOME/ ROUTINE Patient education suggested?: Yes Instructions: Chest Pain (ED), Chest Pain (DC), Chest Pain (GEN) Additional Instructions: 1. Patient is stable for discharge to home as per Dr. Morales 2. Patient will require follow up with Dr. Johnson for continued care. Patient needs to discuss with Dr. Johnson about outpatient pulmonary function tests for a formal diagnosis of COPD. Patient will followup with Dr. Yao within 3-5 days of discharge for stress test. 3. Patient is to resume all of her home medications as no medication adjustments were made during this admission. 4. Patient is educated to return to hospital if symptoms worsen or recur. 5. Patient understands the plan as above and agrees. Referrals: Daphnie Yao MD [Staff Provider] - <Daphnie Morales - Last Filed: 02/04/18 15:08> Provider - Provider Date of Admission: 02/03/18 23:31 Attending physician: Daphnie Morales MD Hospital Course - Lab Results Lab Results: Most Recent Lab Values WBC 10.7 10^3/ul (4.5-11.0) 02/04/18 05:35 RBC 4.61 10^6/uL (3.5-6.1) 02/04/18 05:35 Hgb 13.1 g/dL (12.0-16.0) 02/04/18 05:35 Hct 40.7 % (36.0-48.0) 02/04/18 05:35 MCV 88.3 fl (80.0-105.0) 02/04/18 05:35 MCH 28.4 pg (25.0-35.0) 02/04/18 05:35 MCHC 32.2 g/dl (31.0-37.0) 02/04/18 05:35 RDW 13.4 % (11.5-14.5) 02/04/18 05:35 Plt Count 259 10^3/uL (120.0-450.0) 02/04/18 05:35 MPV 10.6 fl (7.0-11.0) 02/04/18 05:35 Gran % 43.7 % (50.0-68.0) L 02/04/18 05:35 Lymph % (Auto) 41.1 % (22.0-35.0) H 02/04/18 05:35 Putnam % (Auto) 7.4 % (1.0-6.0) H 02/04/18 05:35 Eos % (Auto) 7.4 % (1.5-5.0) H 02/04/18 05:35 Baso % (Auto) 0.4 % (0.0-3.0) 02/04/18 05:35 Gran # 4.69 (1.4-6.5) 02/04/18 05:35 Lymph # (Auto) 4.4 (1.2-3.4) H 02/04/18 05:35 Putnam # (Auto) 0.8 (0.1-0.6) H 02/04/18 05:35 Eos # (Auto) 0.8 (0.0-0.7) H 02/04/18 05:35 Baso # (Auto) 0.04 K/mm3 (0.0-2.0) 02/04/18 05:35 D-Dimer, Quantitative < 200 ng/mlDDU (0-243) 02/04/18 10:55 Sodium 140 mmol/L (132-148) 02/04/18 05:35 Potassium 4.1 mmol/L (3.6-5.0) 02/04/18 05:35 Chloride 108 mmol/L (98-107) H 02/04/18 05:35 Carbon Dioxide 25 mmol/L (21-33) 02/04/18 05:35 Anion Gap 11 (10-20) 02/04/18 05:35 BUN 9 mg/dL (7-21) 02/04/18 05:35 Creatinine 0.5 mg/dl (0.7-1.2) L 02/04/18 05:35 Est GFR ( Amer) > 60 02/04/18 05:35 Est GFR (Non-Af Amer) > 60 02/04/18 05:35 Random Glucose 94 mg/dL (70-110) 02/04/18 05:35 Hemoglobin A1c 6.0 % (4.2-6.5) 02/03/18 20:25 Calcium 9.2 mg/dL (8.4-10.5) 02/04/18 05:35 Magnesium 2.0 mg/dL (1.7-2.2) 02/03/18 20:25 Total Bilirubin 0.3 mg/dL (0.2-1.3) 02/04/18 05:35 AST 22 U/L (14-36) 02/04/18 05:35 ALT 23 U/L (7-56) 02/04/18 05:35 Alkaline Phosphatase 100 U/L (38-126) 02/04/18 05:35 Lactate Dehydrogenase 502 U/L (333-699) 02/03/18 20:25 Total Creatine Kinase 166 U/L (35-230) 02/03/18 20:25 Troponin I < 0.01 ng/mL 02/04/18 07:30 NT-Pro-B Natriuret Pep 28.2 pg/mL (0-450) 02/03/18 20:25 Total Protein 6.4 g/dL (5.8-8.3) 02/04/18 05:35 Albumin 3.5 g/dL (3.0-4.8) 02/04/18 05:35 Globulin 2.9 gm/dL 02/04/18 05:35 Albumin/Globulin Ratio 1.2 (1.1-1.8) 02/04/18 05:35 Triglycerides 136 mg/dL (35-160) 02/03/18 20:25 Cholesterol 163 mg/dL (130-200) 02/03/18 20:25 LDL Cholesterol Direct 106 mg/dL (0-129) 02/03/18 20:25 HDL Cholesterol 41 mg/dL (29-60) 02/03/18 20:25 Free T4 1.15 ng/dL (0.78-2.19) 02/03/18 20:25 TSH 3rd Generation 1.21 mIU/mL (0.46-4.68) 02/03/18 20:25 Urine Color Yellow (YELLOW) 02/03/18 22:15 Urine Appearance Clear (CLEAR) 02/03/18 22:15 Urine pH 6.0 (4.7-8.0) 02/03/18 22:15 Ur Specific [place] >= 1.030 (1.005-1.035) 02/03/18 22:15 Urine Protein Negative mg/dL (<30 mg/dL) 02/03/18 22:15 Urine Glucose (UA) Negative mg/dL (NEGATIVE) 02/03/18 22:15 Urine Ketones Negative mg/dL (NEGATIVE) 02/03/18 22:15 Urine Blood Negative (NEGATIVE) 02/03/18 22:15 Urine Nitrate Negative (NEGATIVE) 02/03/18 22:15 Urine Bilirubin Negative (NEGATIVE) 02/03/18 22:15 Urine Urobilinogen 1.0 E.U./dL (<1 E.U./dL) H 02/03/18 22:15 Ur Leukocyte Esterase Negative Ivette/uL (NEGATIVE) 02/03/18 22:15 Attending/Attestation - Attestation I have personally seen and examined this patient.: Yes I have fully participated in the care of the patient.: Yes I have reviewed all pertinent clinical information, including history, physical exam and plan: Yes Notes (Text): 02/04/18 15:05 Medical record note made by the resident after discussion with my direction and input after the patient was personally seen and examined by me. I have reviewed the chart and agree that the record accurately reflects by personal performance of the history, physical exam, data review, and medical decision-making, in the course for the patient. I have also personally directed the plan of care. 57F with PMH significant for tobacco abuse, TIA in 2002, HTN/fatty liver was admitted with atypical chest pain, Patient has chest wall tenderness, EKG is negative for ischemic changes.Serial troponins are normal. Patient was evaluated by cardiology, out patient stress test is recommended.He will be discharged home and will follow up with PCP and cardiology. Management plan was discussed in detail with patient. Education was provided. 02/04/18 15:08
--- NOTE | 2018-02-04 15:49 | CARD ---
APPROVED REPORT Date of service: 02/04/2018 EXAM: Two-dimensional and M-mode echocardiogram with Doppler and color Doppler. INDICATION Dyspnea Palpitations 2D DIMENSIONS Left Atrium (2D)4.0 (1.6-4.0cm)IVSd1.0 (0.7-1.1cm) LVDd4.5 (3.9-5.9cm)PWd1.0 (0.7-1.1cm) LVDs2.8 (2.5-4.0cm)FS (%) 37.4 % LVEF (%)67.6 (>50%) M-Mode DIMENSIONS Aortic Root3.00 (2.2-3.7cm)Aortic Cusp Exc.1.70 (1.5-2.0cm) Aortic Valve AoV Peak Ghmtdhks892.0cm/Cintia Peak GR.10mmHgLVOT Peak Opodbysr801.0cm/s LVOT VTI24.40cm Mitral Valve MV E Pfauultw89.9cm/sMV A Zqvxhndb31.6cm/sE/A ratio1.2 TDI Lateral E' Peak V9.94cm/sMedial E' Peak V6.73cm/sE/Lateral E'8.6 E/Medial E'12.8 Pulmonary Valve PV Peak Tcklpctp78.3cm/sPV Peak Grad.1mmHg Tricuspid Valve TR Peak Xyilhmji994ok/sRAP [id number] Peak Gr.17mmHg [id number] LEFT VENTRICLE The left ventricle is normal size. There is normal left ventricular wall thickness. The left ventricular function is normal. The left ventricular ejection fraction is within the normal range. There is normal LV segmental wall motion. Transmitral Doppler flow pattern is Grade I-abnormal relaxation pattern. RIGHT VENTRICLE The right ventricle is normal size. There is normal right ventricular wall thickness. The right ventricular systolic function is normal. ATRIA The left atrium is borderline dilated. The right atrium size is normal. AORTIC VALVE A bicuspid aortic valve cannot be excluded. No aortic regurgitation is present. There is no aortic valvular stenosis. MITRAL VALVE The mitral valve is mildly thickened. Mitral regurgitation is trace. TRICUSPID VALVE The tricuspid valve is normal in structure. There is trace tricuspid regurgitation. PULMONIC VALVE The pulmonary valve is normal in structure. There is trace pulmonic valvular regurgitation. GREAT VESSELS The aortic root is normal in size. The IVC is normal in size and collapses >50% with inspiration. <Conclusion> The left ventricle is normal size. There is normal left ventricular wall thickness. The left ventricular function is normal. The left ventricular ejection fraction is within the normal range. There is normal LV segmental wall motion. Transmitral Doppler flow pattern is Grade I-abnormal relaxation pattern.
--- NOTE | 2018-02-04 20:23 | CON ---
DATE: 02/04/2018 LOCATION: The patient is in room 261, bed 1. REASON FOR CONSULTATION: Chest pain, palpitation, dizziness, hypertension. HISTORY OF PRESENT ILLNESS: The patient is a 57-year-old female, known hypertensive, was on metoprolol 50 mg b.i.d. and baby aspirin daily; admitted with a history that she started having chest pain under the left breast, it was like pricking of needles. The patient denies any tightness or any radiation of this pain. The patient off and on, she states, gas and palpitation and she off and on feels dizzy. Dizziness and palpitation come separately, then sometimes they are together and sometimes they are separate. When I questioned her how much is the pulse when you feel palpitation, she states she has not watched with monitor her pulse rate and it is usually around 100 and sometimes heart rate is in 50s. The patient denies any syncope. PAST HISTORY: Positive for hypertension. The patient also had cholecystectomy, umbilical hernia surgery, left carpal tunnel surgery. She had bilateral cataract surgeries. PERSONAL HISTORY: She smokes 10 cigarettes a day. Denies drinking. Does not take any coffee, but she drinks soda. ALLERGIES: THE PATIENT IS ALLERGIC TO MORPHINE. MEDICATIONS AT HOME: The patient was on metoprolol 50 mg b.i.d., baby aspirin one daily. FAMILY HISTORY: Mother, CAD and she got NV at age 75. PHYSICAL EXAMINATION: VITAL SIGNS: Blood pressure 117/69, respirations 20, pulse 62, temperature 98. HEENT: Head is normocephalic. Eyes: Pupils normal. Conjunctivae normal. Nose and throat normal. NECK: JVP low. Carotids equal. THORAX: AP diameter normal. LUNGS: Clear. CARDIOVASCULAR: S1 and S2. ABDOMEN: Soft. No tenderness. No organomegaly. Bowel sounds normal. EXTREMITIES: No clubbing. No cyanosis. LABORATORY DATA: WBC 10.7, hemoglobin 13.1, hematocrit 40.7, platelets 259. Sodium 140, potassium 4.1, BUN 9, creatinine 0.5. Random glucose 94. AST and ALT normal. Troponin normal. Total protein and albumin normal. TSH normal. Chest x-ray, no abnormality. EKG showed normal sinus rhythm, left axis. DIAGNOSES: Atypical chest pain, history of hypertension, history of palpitations, history of dizziness. PLAN: I told the patient that she needs a nuclear stress test, an echo, and a 24-hour Holter monitor. She wants to go home and she will do all those three as outpatient. She was advised to stop smoking. She will continue metoprolol 50 mg b.i.d. and baby aspirin 1 daily. Nuclear stress test, echocardiogram, and 24-hour Holter will be arranged as an outpatient. She was also advised to lose weight. We will follow up. Daphnie Yao MD [facility] # [id number]
== END 2018-02-04 13:53 | disposition home or self-care (01) ==
LOC: ED 19:31 → ERH 23:31 → 2RNO 02-04 01:13
PROVIDERS: ADMIT Internal Medicine; ATTEND Internal Medicine
DX: R07.89 Other chest pain (principal); I10 Essential (primary) hypertension; R42 Dizziness and giddiness; R00.2 Palpitations; F17.210 Nicotine dependence, cigarettes, uncomplicated; R73.03 Prediabetes; K76.0 Fatty (change of) liver, not elsewhere classified; K21.9 Gastro-esophageal reflux disease without esophagitis; M81.0 Age-related osteoporosis without current pathological fracture; Z79.82 Long term (current) use of aspirin; Z86.73 Personal history of transient ischemic attack (TIA), and cerebral infarction without residual deficits; Z88.5 Allergy status to narcotic agent
CPT/HCPCS: 36415; 71045; 80053; 80061; 81003; 82550; 83036; 83615; 83735; 83880; 84145; 84439; 84443; 84484; 85025; 85378; 93005; 93306; 96372; 99285; G0378; J1644; J7030

== ENCOUNTER 2018-07-20 04:36 | Emergency (ER) | payer MEDICAID ==
[2018-07-20 04:45] VITALS: TEMP 97.7; BMI 25.0
[2018-07-20] MEDS ORDERED: Sodium Chloride 0.9% 1,000 ML IV STA (05:04)
--- NOTE | 2018-07-20 05:07 | ED PDOC ---
Arrival/HPI - General Chief Complaint: Abdominal Pain Time Seen by Provider: 07/20/18 04:39 Historian: Patient - History of Present Illness Narrative History of Present Illness (Text): 07/20/18 05:04 A 58 year old female, whose past medical history includes hypertension and kidney stones, presents to the emergency room complaining of right sided abdominal pain radiating to the right back since 2 days ago. Patient reports pain has been intermittent and sharp, noting some urinary frequency. patient denies any fever, chills, diarrhea, dysuria, or any other complaints. No PMD Time/Duration: < week (2 days) Symptom Onset: Gradual Symptom Course: Unchanged Activities at Onset: Light Context: Home Past Medical History - Provider Review Nursing Documentation Reviewed: Yes - Infectious Disease Hx of Infectious Diseases: None - Tetanus Immunization Tetanus Immunization: Unknown - Reproductive Menopause: Yes - Cardiac Hx Cardiac Disorders: Yes Hx Hypertension: Yes - Pulmonary Hx Respiratory Disorders: No - Neurological Hx Neurological Disorder: Yes Hx Vertigo: Yes - HEENT Hx HEENT Disorder: No - Renal Hx Renal Disorder: No - Endocrine/Metabolic Hx Endocrine Disorders: No - Hematological/Oncological Hx Blood Disorders: No - Integumentary Hx Dermatological Disorder: No - Musculoskeletal/Rheumatological Hx Musculoskeletal Disorders: No Hx Falls: No - Gastrointestinal Hx Gastrointestinal Disorders: No - Genitourinary/Gynecological Hx Genitourinary Disorders: No - Psychiatric Hx Psychophysiologic Disorder: No Hx Substance Use: Yes - Surgical History Hx Inguinal Hernia Repair: Yes - Anesthesia Hx Anesthesia: Yes Hx Anesthesia Reactions: No Hx Malignant Hyperthermia: No - Suicidal Assessment Feels Threatened In Home Enviroment: No Family/Social History - Physician Review Nursing Documentation Reviewed: Yes Family/Social History: No Known Family HX Smoking Status: Current Some Days Smoker Hx Alcohol Use: Yes Hx Substance Use: Yes Hx Substance Use Treatment: No Allergies/Home Meds Allergies/Adverse Reactions: Allergies morphine Allergy (Verified 07/20/18 04:46) SHORTNESS OF BREATH Home Medications: Home Meds Medication Instructions Recorded Confirmed Calcium Carbonate/Vitamin D 1 tab PO DAILY 02/06/15 05/13/17 [Calcium 900 W/Vitamin D 300 mg-100 Iu] Gabapentin [Neurontin] 100 mg PO TID 02/06/15 05/13/17 Review of Systems - Physician Review All systems were reviewed & negative as marked: Yes - Review of Systems Constitutional: absent: Fevers, Other (chills) Gastrointestinal: Abdominal Pain (right sided abdominal pain ). absent: Diarrhea Genitourinary Female: absent: Dysuria Musculoskeletal: Back Pain Physical Exam Vital Signs Reviewed: Yes Vital Signs Temp Pulse Resp BP Pulse Ox 07/20/18 04:44 97.7 F 73 16 151/78 H 98 Temperature: Afebrile Blood Pressure: Hypertensive Pulse: Regular Respiratory Rate: Normal Mental Status: Positive for: Alert and Oriented X 3 - Systems Exam Head: Present: Atraumatic, Normocephalic Pupils: Present: PERRL Extroacular Muscles: Present: EOMI Conjunctiva: Present: Normal Cardiovascular: Present: Regular Rate and Rhythm, Normal S1, S2. No: Murmurs Abdomen: No: Tenderness, Distention, Peritoneal Signs Back: No: CVA Tenderness, Midline Tenderness Upper Extremity: Present: Normal Inspection. No: Cyanosis, Edema Lower Extremity: Present: Normal Inspection. No: Edema, Cyanosis Neurological: Present: GCS=15, CN II-XII Intact, Speech Normal, Motor Func Grossly Intact, Normal Sensory Function Skin: Present: Warm, Dry, Normal Color. No: Rashes Psychiatric: Present: Alert, Oriented x 3, Normal Insight, Normal Concentration Medical Decision Making ED Course and Treatment: 07/20/18 05:10 Impression: 58 year old female presenting to the emergency room complaining of right sided abdominal pain. Plan: -- EKG -- Labs -- CBC -- IV fluids -- Toradol -- Urinalysis -- Reassess and disposition Prior Visits: Notes and results from previous visits were reviewed. Progress Notes: 07/20/18 06:41 CT Abd/Pelvis T SCAN OF THE ABDOMEN AND PELVIS WITH CONTRAST. CLINICAL HISTORY: Abdominal pain. COMPARISON: 06/12/2015. TECHNIQUE: Multiple axial and coronal CT images were obtained through the abdomen and pelvis after administration of intravenous contrast material. COMMENTS: Uncomplicated diverticulosis of the colon. Mild amount of fecal residue in the large bowels. Diffuse thickening of the bladder. The liver is of uniform attenuation without mass or defect. There is no intra or extrahepatic biliary ductal dilatation. The spleen is normal. The gallbladder is surgically absent. The pancreas is of normal contour and attenuation characteristics. There is no evidence of adrenal mass. Both kidneys demonstrate prompt and equal nephrograms. The kidneys are normal in size, shape and configuration. There is no evidence of renal or ureteral mass. No renal or ureteral calculi are identified. There is no hydroureter or hydronephrosis. No evidence for appendicitis. There is no bowel wall thickening. No evidence for small or large bowel obstruction. There is no evidence of abdominal ascites or lymphadenopathy. There is no evidence of intrinsic or extrinsic bladder mass. There is no pelvic ascites or lymphadenopathy. Images of the lung bases show no evidence of pleural or parenchymal mass. There are no pleural effusions. The bony structures are free of lytic or blastic lesions. IMPRESSION: Uncomplicated diverticulosis of the colon. Mild amount of fecal residue in the large bowels. Diffuse thickening of the bladder. Mild cystitis. - Scribe Statement The provider has reviewed the documentation as recorded by the Raul Asher All medical record entries made by the Addyibe were at my direction and personally dictated by me. I have reviewed the chart and agree that the record accurately reflects my personal performance of the history, physical exam, medical decision making, and the department course for this patient. I have also personally directed, reviewed, and agree with the discharge instructions and disposition. Disposition/Present on Arrival - Present on Arrival Any Indicators Present on Arrival: No History of DVT/PE: No History of Uncontrolled Diabetes: No Urinary Catheter: No History of Decub. Ulcer: No History Surgical Site Infection Following: None - Disposition Have Diagnosis and Disposition been Completed?: Yes Diagnosis: Cystitis Disposition: HOME/ ROUTINE Disposition Time: 06:45 Patient Plan: Discharge Condition: GOOD Discharge Instructions (ExitCare): Acute Cystitis (DC) Additional Instructions: Drink plenty of liquids/take meds as prescribed/follow up with your doctor this week Prescriptions: Cephalexin [cephalexin] 500 mg PO BID #10 cap Forms: [facility] (French), WORK NOTE
[2018-07-20 05:37] LABS: ALB/GLOB RATIO 1.2 (1.1-1.8); ALBUMIN 4.2 g/dL (3.0-4.8); ALT/SGPT 15 U/L (7-56); AST/SGOT 22 U/L (14-36); BLOOD UREA NITROGEN 10 mg/dL (7-21); CALCIUM 9.5 mg/dL (8.4-10.5); GFR NON-AFRICAN AMERICAN > 60; LIPASE 170 U/L (23-300)
[2018-07-20 05:50] LABS: HEMOGLOBIN 14.5 g/dL (12.0-16.0); MEAN CELL VOLUME 89.7 fl (80.0-105.0); MEAN CORPUSCULAR HEMOGLOBIN 29.4 pg (25.0-35.0); MEAN CORPUSCULAR HGB CONC 32.7 g/dl (31.0-37.0); MEAN PLATELET VOLUME 10.8 fl (7.0-11.0); RBC 4.94 10^6/uL (3.5-6.1); RED CELL DISTRIBUTION WIDTH 13.6 % (11.5-14.5); WHITE BLOOD COUNT 11.2 10^3/uL (4.5-11.0)
[2018-07-20 05:54] LABS: URINE BILIRUBIN NEGATIVE (NEGATIVE); URINE BLOOD NEGATIVE (NEGATIVE); URINE GLUCOSE (UA) NEGATIVE (NEGATIVE); URINE LEUKOCYTE ESTERASE NEGATIVE Leu/uL (NEGATIVE); URINE PROTEIN NEGATIVE mg/dL (<30 mg/dL); URINE UROBILINOGEN 0.2 E.U./dL (<1 E.U./dL)
[2018-07-20 05:55] LABS: URINE APPEARANCE CLEAR (CLEAR); URINE COLOR YELLOW (YELLOW)
[2018-07-20] MEDS ORDERED: Iohexol 350 MG/100 ML VIAL ONE (05:56)
[2018-07-20 07:04] VITALS: BP 145/74; PULSE 75; RESP 18; O2SAT 100
--- NOTE | 2018-07-20 09:42 | CT ---
Date of service: 07/20/2018 PROCEDURE: CT Abdomen and Pelvis with contrast HISTORY: abdominal pain COMPARISON: None. TECHNIQUE: Contrast dose: 100 cc of Omni 350 Radiation dose: Total exam DLP = 289.96 mGy-cm. This CT exam was performed using one or more of the following dose reduction techniques: Automated exposure control, adjustment of the mA and/or kV according to patient size, and/or use of iterative reconstruction technique. FINDINGS: LOWER THORAX: Unremarkable. LIVER: Unremarkable. No gross lesion or ductal dilatation. GALLBLADDER AND BILE DUCTS: Gallbladder removed PANCREAS: Unremarkable. No gross lesion or ductal dilatation. SPLEEN: Unremarkable. ADRENALS: Unremarkable. No mass. KIDNEYS AND URETERS: Unremarkable. No hydronephrosis. No solid mass. VASCULATURE: Unremarkable. No aortic aneurysm. No aortic atherosclerotic calcification or mural plaque present. BOWEL: Unremarkable. No obstruction. No gross mural thickening. APPENDIX: Normal appendix. PERITONEUM: Unremarkable. No free fluid. No free air. LYMPH NODES: Unremarkable. No enlarged lymph nodes. BLADDER: Unremarkable. REPRODUCTIVE: Unremarkable. BONES: No acute fracture. OTHER FINDINGS: The report concurs with the preliminary [facility] report IMPRESSION: Unremarkable contrast enhanced CT of the abdomen and pelvis.
--- NOTE | 2018-07-20 22:33 | CARD ---
APPROVED REPORT Date of service: 07/20/2018 EKG Measurement Heart [id number] MD [id number] <Conclusion> Normal sinus rhythm Left axis deviation Minor intraventricular comduction delay of RBBB type Abnormal ECG
== END 2018-07-20 07:00 | disposition home or self-care (01) ==
LOC: ED 04:36
DX: N30.90 Cystitis, unspecified without hematuria (principal); I10 Essential (primary) hypertension; F17.210 Nicotine dependence, cigarettes, uncomplicated
CPT/HCPCS: 74177; 80053; 81003; 83690; 85027; 93005; 96374; 99283; J1885; J7030; Q9967